=== PATIENT | female | born 1960 ===

== ENCOUNTER 2018-12-25 17:05 | Emergency (ER) | payer MEDICAID ==
[2018-12-25] MEDS ORDERED: KETOROLAC 30 MG/1 ML INJ IV ONE (18:26)
--- NOTE | 2018-12-25 19:32 | Cat Scan Report ---
CT head without contrast INDICATION : Headache following fall. TECHNIQUE: Axial imaging performed from the skull apex through the skull base without the use of con trast. All CT examinations performed at this facility utilize dose modulation, iterative reconstruct ion or weight-based dosing, when appropriate, to reduce radiation dose to as low as reasonably achiev able. COMPARISON: None FINDINGS: No acute intracranial hemorrhage or parenchymal abnormality. Ventricles are normal in si ze and appear symmetric. Soft tissues including the orbits appear normal. No acute osseous abnorm ality. Sinuses and mastoid air cells are clear. IMPRESSION: No acute abnormality. Signer Name: Paddy Roa MD Signed: 12/25/2018 7:28 PM Workstation Name: [id number]
--- NOTE | 2018-12-25 19:46 | Cat Scan Report ---
CT CERVICAL SPINE WITHOUT CONTRAST INDICATION: pain from injury. TECHNIQUE: All CT scans at this location are performed using CT dose reduction for ALARA by means of automated e xposure control. Axial CT images were obtained through the cervical spine. Sagittal and coronal reformatted images we re produced. COMPARISON: None available. FINDINGS: Fracture: None. Subluxation: None. Spinal canal: No significant compromise. Disc spaces: Normal. Facet joints: Normal. Paraspinal soft tissues: No soft tissue swelling. Normal. Additional findings: None. Lung apices: Normal. IMPRESSION: 1. No acute findings. Signer Name: Jovi Pool MD Signed: 12/25/2018 7:41 PM Workstation Name: [id number]
--- NOTE | 2018-12-25 20:15 | XRay Report ---
CHEST 1 VIEW INDICATION / CLINICAL INFORMATION: fall. Chest pain COMPARISON: None available. FINDINGS: SUPPORT DEVICES: None. HEART / MEDIASTINUM: No significant abnormality. LUNGS / PLEURA: Low lung volumes. No pneumothorax or effusion. Signer Name: Paddy Roa MD Signed: 12/25/2018 8:11 PM Workstation Name: [id number]
--- NOTE | 2018-12-25 20:18 | XRay Report ---
Pelvis 2 views INDICATION: Pelvic pain following injury IMPRESSION: The patient is rotated. No displaced fracture or subluxation is identified. Signer Name: Paddy Roa MD Signed: 12/25/2018 8:13 PM Workstation Name: [email or web address]
--- NOTE | 2018-12-25 21:21 | Emergency Department Report ---
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 Patient was noted to be lying on the floor with a small amount of blood from the mouth. Her to follow commands however is difficult to ascertain whether the patient was injured. Patient was placed in c-collar and transported to the hospital. - Related Data Allergies Allergy/AdvReac Type Severity Reaction Status Date / Time No Known Allergies Allergy Verified 12/25/18 18:35 ED Review of Systems ROS: Stated complaint: FELL OFF BED/BLEEDING FROM TEETH Other details as noted in HPI Comment: Unobtainable due to pts medical conditions ED Past Medical Hx - Past Medical History Previous Medical History?: Yes Hx Hypertension: Yes Hx GERD: Yes Additional medical history: huntingtons disease, HTN, hyperlipidemia , Anemia, Mood disorder - Surgical History Past Surgical History?: No - Social History Smoking Status: Unknown if ever smoked Substance Use Type: None ED Physical Exam - General Limitations: No Limitations General appearance: alert, in no apparent distress - Head Head exam: Present: atraumatic, normocephalic - Eye Eye exam: Present: normal appearance - ENT ENT exam: Present: mucous membranes moist - Neck Neck exam: Present: normal inspection, tenderness (patient did grimace when palpating the neck) - Respiratory Respiratory exam: Present: normal lung sounds bilaterally. Absent: respiratory distress, wheezes, rales, rhonchi - Cardiovascular Cardiovascular Exam: Present: regular rate, normal rhythm, normal heart sounds. Absent: systolic murmur, diastolic murmur, rubs, gallop - GI/Abdominal GI/Abdominal exam: Present: soft, normal bowel sounds. Absent: distended, tenderness, guarding, rebound - Extremities Exam Extremities exam: Present: normal inspection - Back Exam Back exam: Present: normal inspection - Neurological Exam Neurological exam: Present: alert, oriented X3 - Psychiatric Psychiatric exam: Present: normal affect, normal mood - Skin Skin exam: Present: warm, dry, intact, normal color. Absent: rash ED Course Vital Signs 12/25/18 12/25/18 12/25/18 18:14 18:39 19:09 Temperature 97.5 F L Pulse Rate 73 Respiratory 12 20 16 Rate Blood Pressure 126/78 [Right] O2 Sat by Pulse 100 Oximetry ED Medical Decision Making - Radiology Data CT of the head and C-spine were performed to rule out intracranial bleed and fracture. CTs were within normal limits. X-ray of the chest was performed and was negative as well. Patient pelvis showed no acute fracture. Critical care attestation.: If time is entered above; I have spent that time in minutes in the direct care of this critically ill patient, excluding procedure time. ED Disposition Clinical Impression: Fall with injury Qualifiers: Encounter type: initial encounter Qualified Code(s): W19.XXXA - Unspecified fall, initial encounter Cervical strain Qualifiers: Encounter type: initial encounter Qualified Code(s): S16.1XXA - Strain of muscle, fascia and tendon at neck level, initial encounter Disposition: DC-01 TO HOME OR SELFCARE Is pt being admited?: No Does the pt Need Aspirin: No Condition: Stable Instructions: Fall Prevention for Older Adults (ED) Time of Disposition: 21:21
[2018-12-25 23:43] VITALS: BP 127/80
== END 2018-12-25 23:59 | disposition home or self-care (01) ==
LOC: ED 17:05
DX: S16.1XXA Strain of muscle, fascia and tendon at neck level, initial encounter (principal); I10 Essential (primary) hypertension; K21.9 Gastro-esophageal reflux disease without esophagitis; E78.5 Hyperlipidemia, unspecified; Z86.2 Personal history of diseases of the blood and blood-forming organs and certain disorders involving the immune mechanism; W06.XXXA Fall from bed, initial encounter; Y93.89 Activity, other specified; Y92.128 Other place in nursing home as the place of occurrence of the external cause; Y99.8 Other external cause status
CPT/HCPCS: 70450; 71045; 72125; 72170; 96374; 99284; J1885

== ENCOUNTER 2019-02-27 14:56 | Inpatient (IN) | payer MEDICAID ==
--- NOTE | 2019-02-27 15:07 | Emergency Department Report ---
ED Neuro Deficit HPI - General Chief Complaint: Neuro Symptoms/Deficit Stated Complaint: POSS CVA Time Seen by Provider: 02/27/19 15:01 Source: EMS Mode of arrival: Stretcher Limitations: Altered Mental Status, Physical Limitation - History of Present Illness Initial Comments: Patient is 58 years old female, jail patient, history of [place] d isease, hypertension, hyperlipidemia and depression. Patient is wheelchair ridden, not verbally, communicating but patient is able to feed herself. Patient brought to the emergency room via EMS from her jail after staff noted weakness to the left upper and lower extremity. Stroke protocol immediately initiated. Patient moved to CT. Stroke telemetry neurology immediately consulted. -: Sudden, This afternoon Location: left arm, left leg Presenting Symptoms: Present: Weak/Paralyzed One Side Place: other ([facility]) Context: sudden onset - Related Data Allergies/Adverse Reactions: Allergies Allergy/AdvReac Type Severity Reaction Status Date / Time No Known Allergies Allergy Verified 12/25/18 18:35 ED Review of Systems ROS: Stated complaint: POSS CVA Other details as noted in HPI Comment: Unobtainable due to pts medical conditions ED Past Medical Hx - Past Medical History Previous Medical History?: Yes Hx Hypertension: Yes Hx GERD: Yes Additional medical history: huntingtons disease, HTN, hyperlipidemia , Anemia, Mood disorder - Surgical History Past Surgical History?: No - Social History Smoking Status: Unknown if ever smoked Substance Use Type: None ED Neuro Physical Exam - General Limitations: Altered Mental Status, Physical Limitation General appearance: alert, in no apparent distress Suspected Stroke: Yes - Head Head exam: Present: atraumatic, normocephalic, normal inspection - ENT ENT exam: Present: normal exam, normal orophraynx, mucous membranes moist - Respiratory Respiratory exam: Present: normal lung sounds bilaterally - Cardiovascular Cardiovascular Exam: Present: regular rate, normal rhythm, normal heart sounds - GI/Abdominal GI/Abdominal exam: Present: soft, normal bowel sounds. Absent: distended, tenderness, guarding, rebound, rigid - Neurological Exam Neurological exam: Present: alert - NIHSS Assessment Interval: Baseline 1a. Level of Consciousness: arousable/minor stimuli 1b. LOC Questions: answers no questions correctly 1c. LOC Commands: performs no tasks correctly 2. Best Gaze: normal 3. Visual: no visual loss 4. Facial Palsy: normal symmetrical movement 5b. Motor Arm Right: no drift 5a. Motor Arm Left: drift 6a. Motor Leg Left: no movement 6b. Motor Leg Right: no movement 7. Limb Ataxia: absent 8. Sensory: normal 9. Best Language: mute/global aphasia 10. Dysarthria: intubated or other barrier 11. Extinction/Inattention: no abnormality Total Score: 17 Stroke Severity: Moderate to Severe Stroke - Skin Skin exam: Present: warm, intact, normal color ED Course Vital Signs 02/27/19 02/27/19 15:27 15:46 Temperature 98.6 F Pulse Rate 73 Respiratory 14 18 Rate Blood Pressure 125/63 O2 Sat by Pulse 98 Oximetry - Lab Data Result diagrams: 02/27/19 15:20 02/27/19 15:20 Lab Results 02/27/19 02/27/19 02/27/19 Range/Units 15:20 15:20 15:20 WBC 9.5 (4.5-11.0) K/mm3 RBC 4.02 (3.65-5.03) M/mm3 Hgb 12.0 (10.1-14.3) gm/dl Hct 36.3 (30.3-42.9) % MCV 90 (79-97) fl MCH 30 (28-32) pg MCHC 33 (30-34) % RDW 13.2 (13.2-15.2) % Plt Count 218 (140-440) K/mm3 Lymph % (Auto) 31.3 (13.4-35.0) % Mcleod % (Auto) 9.2 H (0.0-7.3) % Eos % (Auto) 1.6 (0.0-4.3) % Baso % (Auto) 0.5 (0.0-1.8) % Lymph # 3.0 (1.2-5.4) K/mm3 Mcleod # 0.9 H (0.0-0.8) K/mm3 Eos # 0.2 (0.0-0.4) K/mm3 Baso # 0.0 (0.0-0.1) K/mm3 Seg Neutrophils % 57.4 (40.0-70.0) % Seg Neutrophils # 5.5 (1.8-7.7) K/mm3 PT 13.1 (12.2-14.9) Sec. INR 0.98 (0.87-1.13) APTT 31.1 (24.2-36.6) Sec. Thrombin Time (15.1-19.6) Sec. Sodium 142 (137-145) mmol/L Potassium 4.5 (3.6-5.0) mmol/L Chloride 105.3 (98-107) mmol/L Carbon Dioxide 23 (22-30) mmol/L Anion Gap 18 mmol/L BUN 15 (7-17) mg/dL Creatinine 0.8 (0.7-1.2) mg/dL Estimated GFR > 60 ml/min BUN/Creatinine Ratio 19 % Glucose 96 (65-100) mg/dL Calcium 9.3 (8.4-10.2) mg/dL Troponin T < 0.010 (0.00-0.029) ng/mL 02/27/19 Range/Units 15:20 WBC (4.5-11.0) K/mm3 RBC (3.65-5.03) M/mm3 Hgb (10.1-14.3) gm/dl Hct (30.3-42.9) % MCV (79-97) fl MCH (28-32) pg MCHC (30-34) % RDW (13.2-15.2) % Plt Count (140-440) K/mm3 Lymph % (Auto) (13.4-35.0) % Mcleod % (Auto) (0.0-7.3) % Eos % (Auto) (0.0-4.3) % Baso % (Auto) (0.0-1.8) % Lymph # (1.2-5.4) K/mm3 Mcleod # (0.0-0.8) K/mm3 Eos # (0.0-0.4) K/mm3 Baso # (0.0-0.1) K/mm3 Seg Neutrophils % (40.0-70.0) % Seg Neutrophils # (1.8-7.7) K/mm3 PT (12.2-14.9) Sec. INR (0.87-1.13) APTT (24.2-36.6) Sec. Thrombin Time 14.7 L (15.1-19.6) Sec. Sodium (137-145) mmol/L Potassium (3.6-5.0) mmol/L Chloride (98-107) mmol/L Carbon Dioxide (22-30) mmol/L Anion Gap mmol/L BUN (7-17) mg/dL Creatinine (0.7-1.2) mg/dL Estimated GFR ml/min BUN/Creatinine Ratio % Glucose (65-100) mg/dL Calcium (8.4-10.2) mg/dL Troponin T (0.00-0.029) ng/mL - EKG Data -: EKG Interpreted by Me EKG shows normal: sinus rhythm Rate: normal Interpretation: no acute changes - Radiology Data Radiology results: report reviewed - Medical Decision Making Patient is 58 years old female, jail patient, history of [place] disease, hypertension, hyperlipidemia and depression. Patient is wheelchair ridden, not verbally, communicating but patient is able to feed herself. Patient brought to the emergency room via EMS from her jail after staff noted weakness to the left upper and lower extremity. Stroke protocol immediately initiated. Patient moved to CT. Stroke telemetry neurology immediately consulted. CT brain is negative for acute finding however patient is not a TPA candidate due to unknown time of onset and patient is back to her baseline according to EMS who noted the patient. Neurologists advised to admit to the hospital for stroke workup. Critical Care Time: Yes Critical care time in (mins) excluding proc time.: 30 Critical care attestation.: If time is entered above; I have spent that time in minutes in the direct care of this critically ill patient, excluding procedure time. ED Disposition Clinical Impression: TIA (transient ischemic attack), Left-sided weakness Disposition: OP ADMIT IP TO THIS HOSP Is pt being admited?: Yes Condition: Stable
[2019-02-27 15:27] LABS: Basophils % (Auto) 0.5 % (0.0-1.8); Eosinophils # (Auto) 0.2 K/mm3 (0.0-0.4); Eosinophils % (Auto) 1.6 % (0.0-4.3); Hematocrit 36.3 % (30.3-42.9); Lymphocytes % (Auto) 31.3 % (13.4-35.0); Mean Corpuscular HGB Conc 33 % (30-34); Mean Corpuscular Volume 90 fl (79-97); Monocytes # (Auto) 0.9 K/mm3 (0.0-0.8); Monocytes % (Auto) 9.2 % (0.0-7.3); Platelet Count 218 K/mm3 (140-440); Red Blood Count 4.02 M/mm3 (3.65-5.03); Red Cell Distribution Width 13.2 % (13.2-15.2)
--- NOTE | 2019-02-27 15:35 | Cat Scan Report ---
CT HEAD WITHOUT CONTRAST INDICATION / CLINICAL INFORMATION: neuro deficits <6hrs or sx present upon awakening. New onset left-sided weakness. History of [place] on's disease. TECHNIQUE: All CT scans at this location are performed using CT dose reduction for ALARA by means of automated e xposure control. COMPARISON: None available. FINDINGS: HEMORRHAGE: No evidence of intracranial hemorrhage or extra-axial fluid collection. EXTRA-AXIAL SPACES: Cortical sulci and sylvian fissures are enlarged reflecting a degree of parenchym al volume loss which is within normal limits for the patient's age. Basilar cisterns have an unremark able appearance. VENTRICULAR SYSTEM: The third and lateral ventricles are enlarged reflecting the presence of profound parenchymal volume loss much greater than expected for the patient's age of 58 years. The frontal ho rns of the lateral ventricles are not dilated. There is atrophy of the head of the caudate nuclei shirin aterally. These findings are consistent with the patient's clinical history of Monroe's disease. CEREBRAL PARENCHYMA: Periventricular and deep white matter lucency is observed. This is probably seco ndary to microvascular ischemic change. There is no indication of recent infarction. No areas of ence phalomalacia are identified. MIDLINE SHIFT OR HERNIATION: There is no mass effect. CEREBELLUM / BRAINSTEM: Profound cerebellar atrophy is demonstrated with global dilatation of the cer ebellar and vermian sulci fourth ventricle is enlarged which is a manifestation of atrophy. No focal lesions are seen to involve the brainstem. INTRACRANIAL VESSELS: No abnormalities identified on noncontrast head CT. ORBITS: visualized portions of the orbits have an unremarkable appearance. SOFT TISSUES of HEAD: No significant abnormality. CALVARIUM: Evaluation of bone windows reveals no abnormalities. PARANASAL SINUSES / MASTOID AIR CELLS: Paranasal sinuses are free from inflammatory mucosal disease. Mastoid air cells are normally pneumatized. IMPRESSION: 1. Profound parenchymal volume loss much greater than expected for the patient's age of 58 years. 2. 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 3. No acute intracranial abnormality. No significant interval change. Code stroke: I called a report of this study to Dr. Isabel of the [facility] emergency depa rtment at about 1424 Central standard time. Signer Name: Star Madden MD Signed: 02/27/2019 3:30 PM Workstation Name: [id number]
[2019-02-27 15:38] LABS: INR 0.98 (0.87-1.13); Partial Thromboplastin Time 31.1 Sec. (24.2-36.6)
[2019-02-27 15:46] LABS: BUN/Creatinine Ratio 19; Blood Urea Nitrogen 15 mg/dL (7-17); Calcium 9.3 mg/dL (8.4-10.2); Hemolysis Index 14
--- NOTE | 2019-02-27 16:24 | History and Physical Report ---
History of Present Illness Chief complaint: She is weak History of present illness: 58-year-old female assisted facility resident at [facility] with HTN, GERD, anemia, HLD, [place]'s disease, mood disorder and depression presents the ED for evaluation. Patient is nonverbal, nonambulatory and wh eelchair-bound. Patient is unable to communicate or make needs known. Patient is unable to provide history. Patient history taken from assisted facility staff. As per staff the patient was found to have subjective weakness on her left side. EMS was notified and upon arrival the patient was found to be in distress and transported to [facility]. A code stroke was called. Patient seen and evaluated in the emergency department. Lab and imaging studies reviewed. 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 Patient does not have symptoms at time of my evaluation consistent with stroke. Patient has symmetric weakness in bilateral upper and lower extremities and is moving bilateral upper and lower extremities. Patient placed in observation status and admitted to medical floor. No reported fever, chills, chest pain, palpitations, difficulty breathing, falls, trauma, skin rash, or recent ill contacts while at [facility]. No prior admission for 2 for review. All medication listed at time of admission have been reconciled. Past History Past Medical History: anemia (See HPI), GERD, hypertension, other (See HPI) Past Surgical History: No surgical history, Other (Reviewed) Social history: single. denies: smoking, alcohol abuse, prescription drug abuse Family history: hypertension Medications and Allergies Allergies Allergy/AdvReac Type Severity Reaction Status Date / Time No Known Allergies Allergy Verified 12/25/18 18:35 Review of Systems ROS unobtainable: due to mental status Exam - Constitutional Vitals: Temp Pulse Resp BP Pulse Ox 98.6 F 73 18 125/63 98 02/27/19 15:27 02/27/19 15:27 02/27/19 15:46 02/27/19 15:27 02/27/19 15:27 General appearance: Present: mild distress - EENT Eyes: Present: PERRL ENT: hearing intact, clear oral mucosa - Neck Neck: Present: supple, normal ROM - Respiratory Respiratory effort: normal Respiratory: bilateral: CTA - Cardiovascular Heart Sounds: Present: S1 & S2. Absent: rub, click - Extremities Extremities: pulses symmetrical, No edema Peripheral Pulses: within normal limits - Abdominal General gastrointestinal: Present: soft, non-tender, non-distended, normal bowel sounds Female genitourinary: Present: normal - Integumentary Integumentary: Present: clear, dry - Musculoskeletal Musculoskeletal: generalized weakness - Psychiatric Psychiatric: no appropriate mood/affect, no intact judgment & insight, no memory intact - Neurologic Neurologic: no focal deficits, moves all extremities, no gait normal Results - Labs CBC & Chem 7: 02/27/19 15:20 02/27/19 15:20 Labs: Abnormal lab results 02/27/19 02/27/19 Range/Units 15:20 15:20 [place] % (Auto) 9.2 H (0.0-7.3) % [place] # 0.9 H (0.0-0.8) K/mm3 Thrombin Time 14.7 L (15.1-19.6) Sec. Assessment and Plan - Patient Problems (1) [place]'s disease Status: Acute Plan to address problem: Supportive care, neurochecks, aspiration precautions, outpatient neurology follow-up. (2) Debility Status: Acute Plan to address problem: Supportive care, pain control, physical therapy assessment (3) Hypertension Status: Acute Qualifiers: Hypertension type: essential hypertension Qualified Code(s): I10 - Essential (primary) hypertension Plan to address problem: monitor BP every shift, continue medical management. (4) GERD (gastroesophageal reflux disease) Status: Acute Qualifiers: Esophagitis presence: without esophagitis Qualified Code(s): K21.9 - Gastr o-esophageal reflux disease without esophagitis Plan to address problem: PPI therapy, supportive care (5) DVT prophylaxis Status: Acute Plan to address problem: SCD to bilateral lower extremities while in bed, prophylactic Lovenox.
--- NOTE | 2019-02-27 21:59 | Consultation ---
History of Present Illness - Reason for Consult Consult date: 02/27/19 stroke evaluation - History of Present Illness [facility] Tele[facility]urology Consult Services Date of Service: 02/27/2019 15:19:57 Comments: not iv alteplase candidate with unclear onset of sxs low clinical suspicion for Large vessel occlusive disease by assessment. Metrics: Last Known Well: Unknown [facility] Notification Time: 02/27/2019 15:19:17 Arrival Time: 02/27/2019 14:56:00 Stamp Time: 02/27/2019 15:19:57 Time First Login Attempt: 02/27/2019 15:28:03 Video Start Time: 02/27/2019 15:28:03 NIHSS Start Assessment Time: 02/27/2019 15:30:56 Patient is not a candidate for tPA. Patient was not deemed candidate for tPA thrombolytics because of Last Well Known Above 4.5 Hours. Video End Time: 02/27/2019 15:34:33 CT head showed no acute hemorrhage or acute core infarct. Advanced imaging was not obtained as the presentation was not suggestive of Large Vessel Occlusive Disease. ER Physician notified of the decision on thrombolytics management on 02/27/2019 15:36:03 Our recommendations are outlined below. Recommendations: Activate Stroke Protocol Admission/Order Set Stroke/Telemetry Floor Neuro Checks Bedside Swallow Eval DVT Prophylaxis IV Fluids, Normal Saline Head of Bed Below 30 Degrees Euglycemia and Avoid Hyperthermia (PRN Acetaminophen) Antiplatelet Therapy Recommended Recommended Scan: MRI Head with and Without Contrast Lipid Panel to Be Obtained, if Not Done in the Last Three Months Therapies: Physical Therapy, Occupational Therapy, Speech Therapy Assessment When Applicable Dysphaghia Screen: Swallow Evaluation, Bedside NPO Until Swallow Evaluation DVT prophylaxis: Choice of Primary Team Disposition: If needed consider follow up with Teleneurology Sign Out: Discussed with Emergency Department Provider History of Present Illness: Patient is a 58 year old Female. Patient was brought by EMS. Patient presents from [facility] for evaluation for change. She is non verbal at baseline, has Anabela's disease and hypertension. The caregiver states no change in baseline but provider that did rounds felt there was. Onset of sxs unclear and per d/w ED staff she is moving her left side. CT head showed no acute hemorrhage or acute core infarct. Examination: 1A: Level of Consciousness - Alert; keenly responsive + 0 1B: Ask Month and Age - Could Not Answer Either Question Correctly + 2 (baseline) 1C: Blink Eyes & Squeeze Hands - Performs 1 Task + 1 2: Test Horizontal Extraocular Movements - Normal + 0 3: Test Visual Brooks - No Visual Loss + 0 4: Test Facial Palsy (Use Grimace if Obtunded) - Normal symmetry + 0 5A: Test Left Arm Motor Drift - Drift, but doesn't hit bed + 1 5B: Test Right Arm Motor Drift - Drift, but doesn't hit bed + 1 6A: Test Left Leg Motor Drift - No Effort Against Burdine +2 6B: Test Right Leg Motor Drift - Some Effort Against Burdine + 3 7: Test Limb Ataxia (FNF/Heel-Butt) - No Ataxia + 0 8: Test Sensation - Normal; No sensory loss + 0 9: Test Language/Aphasia - Mute/Global Aphasia: No Usable Speech/Auditory Comprehension + 3 (baseline) 10: Test Dysarthria - Normal + 0 11: Test Extinction/Inattention - No abnormality + 0 NIHSS Score: 13 Patient was informed the Neurology Consult would happen via TeleHealth consult by way of interactive audio and video telecommunications and consented to receiving care in this manner. Due to the immediate potential for life-threatening deterioration due to under lying acute neurologic illness, I spent 35 minutes providing critical care. This time includes time for face to face visit via telemedicine, review of medical records, imaging studies and discussion of findings with providers, the patient and/or family. Dr Jeffrey Harris [facility] Case [id number] Past History Past Medical History: anemia (See HPI), GERD, hypertension, other (See HPI) Past Surgical History: No surgical history, Other (Reviewed) Social history: single. denies: smoking, alcohol abuse, prescription drug abuse Family history: hypertension Medications and Allergies Allergies Allergy/AdvReac Type Severity Reaction Status Date / Time No Known Allergies Allergy Verified 12/25/18 18:35 Home Medications Medication Instructions Recorded Confirmed Last Taken Type Amlodipine Besylate [Norvasc] 2.5 mg PO DAILY 02/27/19 02/27/19 Unknown History Docusate Sodium [Colace] 100 mg PO DAILY 02/27/19 02/27/19 Unknown History Ferrous Sulfate [Iron 325 MG] 325 mg PO DAILY 02/27/19 02/27/19 Unknown History Ketoconazole [Ketoconazole shampoo] 120 ml TP QWEEK 02/27/19 02/27/19 Unknown History Pravastatin [Pravachol] 10 mg PO QHS 02/27/19 02/27/19 Unknown History QUEtiapine [SEROquel] 100 mg PO QHS 02/27/19 02/27/19 Unknown History clonazePAM 0.5 mg PO DAILY 02/27/19 02/27/19 Unknown History Active Meds: Active Medications Enoxaparin Sodium (Enoxaparin) 40 mg SUB-Q QDAY@2200 [facility] Exam - Constitutional Vitals: Temp Pulse Resp BP Pulse Ox 98.6 F 72 17 123/83 98 02/27/19 21:34 02/27/19 21:34 02/27/19 21:34 02/27/19 20:00 02/27/19 21:34 Results - Labs CBC & Chem 7: 02/27/19 15:20 02/27/19 15:20 Labs: Abnormal lab results 02/27/19 02/27/19 Range/Units 15:20 15:20 [place] % (Auto) 9.2 H (0.0-7.3) % [place] # 0.9 H (0.0-0.8) K/mm3 Thrombin Time 14.7 L (15.1-19.6) Sec.
[2019-02-27] MEDS: ENOXAPARIN 40 MG/0.4 ML INJ SUB-Q SCH (22:13)
[2019-02-28] MEDS ORDERED: D5W/0.45% NACL 1,000 ML IV SCH (12:00)
[2019-02-28] MEDS: DOCUSATE SODIUM 100 MG CAP PO SCH (12:00)
[2019-02-28] MEDS: ASPIRIN 325 MG TAB PO SCH (12:00)
[2019-02-28] MEDS: clonazePAM 0.5 MG TAB PO SCH (12:00)
[2019-02-28] MEDS: FERROUS SULFATE 325 MG TAB PO SCH (12:00)
--- NOTE | 2019-02-28 12:45 | Vascular Lab Report ---
"DUPLEX DOPPLER ULTRASOUND CAROTID, BILATERAL INDICATION: stroke. COMPARISON: None available. FINDINGS: RIGHT CAROTID: No significant atherosclerotic plaque. CCA velocity: 95 cm/sec. ICA peak systolic velocity: 91 cm/sec. ICA/CCA PSV Ratio: Less than 1.. Right Vertebral Artery: Antegrade flow. LEFT CAROTID: No significant atherosclerotic plaque. CCA velocity: 128 cm/sec. ICA peak systolic velocity: 87 cm/sec. ICA/CCA PSV Ratio: Less than 1.. Left Vertebral Artery: Antegrade flow. IMPRESSION: 1. Right Internal Carotid Artery: Less than 50% diameter stenosis. 2. Left Internal Carotid Artery: Less than 50% diameter stenosis. Velocity criteria are extrapolated from diameter data as defined by the Society of Radiologists in Ul trasound Consensus Conference, Radiology 2003; 229;340-346. Degree of || ICA PSV || Plaque || ICA/CCA Stenosis (%) || (cm/sec) || estimate (%) || PSV Ratio - Normal...............<125..............None.................<2.0 - <50....................<125..............<50....................<2.0 - 50-69................125-230.........>50....................2.0-4.0 - >70 but <100....>230..............>50....................>4.0 - Near...................High, low, .....visible................variable occlusion or none - Total...................None.............visible;................N/A occlusion no lumen Signer Name: Se Flower MD Signed: 02/28/2019 12:41 PM Workstation Name: [id number]"
--- NOTE | 2019-02-28 16:07 | Consultation ---
History of Present Illness Consult date: 02/28/19 Reason for Consult: Left sided weakness Chief complaint: Left sided weakness History of present illness: Patient is a 58-year-old woman with a history of Anabela's disease, hypertension, GERD, depression. Patient is reportedly intermittently nonverbal and nonambulatory at baseline, and has cognitive impairment as well. The patient is a resident of a nursing facility. Yesterday, the patient was felt to have left-sided weakness. The reports of this or conflicted, as the patient's caregiver states that there is no change since baseline, however the health care provider who was running on the patient yesterday felt that they saw a change in motor strength on the left side. Patient was then brought to [facility] for further evaluation. On examination at time of admission, patient was felt to be symmetrically moving all extremities, and was not found to have any localized weakness. Past History Past Medical History: anemia (See HPI), GERD, hypertension, other (Henderson's disease) Past Surgical History: No surgical history, Other (Reviewed) Social history: single, Lives alone (nursing facility). denies: smoking, alcohol abuse, prescription drug abuse Family history: hypertension Medications and Allergies Allergies Allergy/AdvReac Type Severity Reaction Status Date / Time No Known Allergies Allergy Verified 12/25/18 18:35 Home Medications Medication Instructions Recorded Confirmed Last Taken Type Amlodipine Besylate [Norvasc] 2.5 mg PO DAILY 02/27/19 02/27/19 Unknown History Docusate Sodium [Colace] 100 mg PO DAILY 02/27/19 02/27/19 Unknown History Ferrous Sulfate [Iron 325 MG] 325 mg PO DAILY 02/27/19 02/27/19 Unknown History Ketoconazole [Ketoconazole shampoo] 120 ml TP QWEEK 02/27/19 02/27/19 Unknown History Pravastatin [Pravachol] 10 mg PO QHS 02/27/19 02/27/19 Unknown History QUEtiapine [SEROquel] 100 mg PO QHS 02/27/19 02/27/19 Unknown History clonazePAM 0.5 mg PO DAILY 02/27/19 02/27/19 Unknown History Active Meds: Active Medications Aspirin (Aspirin) 325 mg PO QDAY [facility] Last Admin: 02/28/19 12:00 Dose: Not Given Documented by: Atorvastatin Calcium (Lipitor) 40 mg PO QHS [facility] Clonazepam (Klonopin) 0.5 mg PO DAILY [facility] Last Admin: 02/28/19 12:00 Dose: Not Given Documented by: Docusate Sodium (Colace) 100 mg PO DAILY [facility] Last Admin: 02/28/19 12:00 Dose: Not Given Documented by: Enoxaparin Sodium (Enoxaparin) 40 mg SUB-Q QDAY@2200 [facility] Last Admin: 02/27/19 22:13 Dose: 40 mg Documented by: Ferrous Sulfate (Feosol) 325 mg PO DAILY [facility] Last Admin: 02/28/19 12:00 Dose: Not Given Documented by: Dextrose/Sodium Chloride (D5/0.45ns) 1,000 mls @ 42 mls/hr IV DIRECT [facility] Last Admin: 02/28/19 12:13 Dose: 42 mls/hr Documented by: Quetiapine Fumarate (Seroquel) 100 mg PO QHS [facility] Sodium Chloride (Sodium Chloride Flush Syringe 10 Ml) 10 ml IV PRN PRN PRN Reason: LINE FLUSH Review of Systems ROS unobtainable: due to mental status (patient is nonverbal at baseline) Physical Examination - Vital Signs Vital Signs: Vital Signs Temp Pulse Resp BP Pulse Ox 98.6 F 73 14 125/63 98 02/27/19 15:27 02/27/19 15:27 02/27/19 15:27 02/27/19 15:27 02/27/19 15:27 - Physical Exam Narrative exam: Patient is alert, awake, oriented to self only, follows one-step commands. Noted to have mild dysarthria which is baseline, no aphasia noted. Patient able to name objects. PERRL, EOMI, VFF, no facial weakness noted, tongue midline, b/l intact to LT. 4/5 strength in UE, 4/5 in LE. B/l intact to LT. B/l intact to FTN and HTS. 2+ reflexes throughout. Noted to have chorea movement during exam. - Constitutional General appearance: comfortable - EENT EENT: Present: ATNC, PERRL, mucous membranes moist - Respiratory Respiratory: Present: lungs clear, normal breath sounds - Cardiovascular Cardiovascular: Present: regular rate, normal S1, normal S2 Extremities: Present: no clubbing, cyanosis, no inflammation - Gastrointestinal Gastrointestinal: Present: normoactive bowel sounds, soft, non-tender - Integumentary Integumentary: Present: normal - Level of Consciousness 1a. Level of Consciousness: alert/keenly responsive - LOC Questions 1b. LOC Questions: answers 1 question correctly - LOC Command 1c. LOC Commands: performs tasks correctly - Best Gaze 2. Best Gaze: normal - Visual 3. Visual: no visual loss - Facial Palsy 4. Facial Palsy: normal symmetrical movement - Motor Arm 5a. Motor Arm Left: no drift 5b. Motor Arm Right: no drift - Motor Leg 6a. Motor Leg Left: no drift 6b. Motor Leg Right: no drift - Limb Ataxia 7. Limb Ataxia: absent - Sensory 8. Sensory: normal - Best Language 9. Best Language: no aphasia - Dysarthria 10. Dysarthria: mild/moderate dysarthria - Extinction and Inattention 11. Extinction/Inattention: no abnormality - Scoring Total Score: 2 Stroke Severity: Minor Stroke Results - Laboratory Findings CBC and BMP: 02/27/19 15:20 02/27/19 15:20 Abnormal Lab Findings: Abnormal Labs 02/27/19 02/27/19 15:20 15:20 [place] % (Auto) 9.2 H [place] # 0.9 H Thrombin Time 14.7 L Assessment and Plan Patient is a 58-year-old woman with a history of Henderson's disease, hypertension, GERD, depression, who p/w left sided weakness. According to the patient's clinical findings, it is felt that the patient may have had a TIA. Alternatively, symptoms may be due to patient's underlying diagnosis of Henderson's disease. Plan: 1. Possible TIA: - Left sided weakness was reportedly noted by healthcare worker at nursing facility. No current weakness noted on exam at this time - Discussed patient's baseline, and patient is currently at baseline based on mental status and neurologic exam - Check MRI - Check MRA head - CUS: no significant stenosis - Cont. ASA 81mg daily - Cont. statin - Telemetry monitoring while in house - PT/OT/ST - DVT Ppx: Recommend lovenox 2. Hypertension: - Recommend BP goal of normotension as patient is back at baseline, and currently has no left sided weakness. - Will continue to monitor patient. Thank you for allowing me to take part in the care this patient. Jerzy Baker MD Neurology
[2019-02-28] MEDS ORDERED: ONDANSETRON 4 MG/2 ML INJ IV PRN (16:44)
--- NOTE | 2019-02-28 16:47 | Progress Note ---
Assessment and Plan Assessment and plan: 58-year-old woman with a history of [place]'s disease, dementia. She was brought from senior care for decreased responsiveness and they stated that she was not moving her right side. acute CVA? unclear if she did have a cva, she is moving both sides of her body, but she seems to hold her right upper extremity, but she has ability to move it, right side does appear to be weaker than left side. Tele- neurology input appreciated, neurology consulted, Allow permissive hypertension, has received aspirin, stroke education, observe for arrhythmia on telemetry, -neurology consult --aspirin and high dose statin, check Lipid panel MRI brain, MRA head, carotid Dopplers, echo -- passed bedside swallow eval, on [facility] soft diet Anabela's disease/dementia; supportive care Dysphasia Dysphasia was related by senior care, but patient is eating 100% of her tray. It is possible that she does not like the food there. I giving her a pured diet at a senior care, but we gave her mechanical soft diet which he consumed 100%. Speech therapy evaluation. Nausea vomiting Antiemetics, GI consult DVT prophylaxis with Lovenox History Interval history: No fevers She has had nausea and vomiting no seizure-like activity No diarrhea No agitation No obvious discomfort Hospitalist Physical - Physical exam Narrative exam: General.: Appears well, no distress, nontoxic HEENT: Moist mucous membranes, extraocular muscles intact, no lymphadenopathy Neck: supple Cardiac: S1-S2 heard Lungs: clear to auscultation bilaterally Abdomen: soft , nontender, nondistended, bowel sounds positive Extremities: no edema clubbing or cyanosis Skin: no rash or lesions Neurologic: Has constant movements consistent with movement disorder. Patient is holding right upper extremity, but she has full movement of all her extremities. Right side appears weaker than left, but she is not able to coop erate with exam due to [place]'s dementia Psych: calm, and cooperative - Constitutional Vitals: Temp Pulse Resp BP Pulse Ox 97.5 F L 82 20 125/81 97 02/28/19 03:20 02/28/19 03:20 02/28/19 03:20 02/28/19 03:20 02/28/19 03:20 General appearance: Present: mild distress Results - Labs CBC & Chem 7: 02/27/19 15:20 02/27/19 15:20 Labs: Laboratory Last Values WBC 9.5 K/mm3 (4.5-11.0) 02/27/19 15:20 RBC 4.02 M/mm3 (3.65-5.03) 02/27/19 15:20 Hgb 12.0 gm/dl (10.1-14.3) 02/27/19 15:20 Hct 36.3 % (30.3-42.9) 02/27/19 15:20 MCV 90 fl (79-97) 02/27/19 15:20 MCH 30 pg (28-32) 02/27/19 15:20 MCHC 33 % (30-34) 02/27/19 15:20 RDW 13.2 % (13.2-15.2) 02/27/19 15:20 Plt Count 218 K/mm3 (140-440) 02/27/19 15:20 Lymph % (Auto) 31.3 % (13.4-35.0) 02/27/19 15:20 [place] % (Auto) 9.2 % (0.0-7.3) H 02/27/19 15:20 Eos % (Auto) 1.6 % (0.0-4.3) 02/27/19 15:20 Baso % (Auto) 0.5 % (0.0-1.8) 02/27/19 15:20 Lymph # 3.0 K/mm3 (1.2-5.4) 02/27/19 15:20 [place] # 0.9 K/mm3 (0.0-0.8) H 02/27/19 15:20 Eos # 0.2 K/mm3 (0.0-0.4) 02/27/19 15:20 Baso # 0.0 K/mm3 (0.0-0.1) 02/27/19 15:20 Seg Neutrophils % 57.4 % (40.0-70.0) 02/27/19 15:20 Seg Neutrophils # 5.5 K/mm3 (1.8-7.7) 02/27/19 15:20 PT 13.1 Sec. (12.2-14.9) 02/27/19 15:20 INR 0.98 (0.87-1.13) 02/27/19 15:20 APTT 31.1 Sec. (24.2-36.6) 02/27/19 15:20 Thrombin Time 14.7 Sec. (15.1-19.6) L 02/27/19 15:20 Sodium 142 mmol/L (137-145) 02/27/19 15:20 Potassium 4.5 mmol/L (3.6-5.0) 02/27/19 15:20 Chloride 105.3 mmol/L (98-107) 02/27/19 15:20 Carbon Dioxide 23 mmol/L (22-30) 02/27/19 15:20 Anion Gap 18 mmol/L 02/27/19 15:20 BUN 15 mg/dL (7-17) 02/27/19 15:20 Creatinine 0.8 mg/dL (0.7-1.2) 02/27/19 15:20 Estimated GFR > 60 ml/min 02/27/19 15:20 BUN/Creatinine Ratio 19 % 02/27/19 15:20 Glucose 96 mg/dL (65-100) 02/27/19 15:20 POC Glucose 108 (70-105) H 02/28/19 16:36 Calcium 9.3 mg/dL (8.4-10.2) 02/27/19 15:20 Troponin T < 0.010 ng/mL (0.00-0.029) 02/27/19 15:20 Active Medications - Current Medications Current Medications: Generic Name Dose Route Start Last Admin Trade Name Freq PRN Reason Stop Dose Admin Aspirin 325 mg 02/28/19 12:00 02/28/19 12:00 Aspirin PO Not Given QDAY [facility] Atorvastatin Calcium 40 mg 02/28/19 22:00 Lipitor PO QHS [facility] Clonazepam 0.5 mg 02/28/19 12:00 02/28/19 12:00 Klonopin PO Not Given DAILY [facility] Docusate Sodium 100 mg 02/28/19 12:00 02/28/19 12:00 Colace PO Not Given DAILY [facility] Enoxaparin Sodium 40 mg 02/27/19 22:00 02/27/19 22:13 Enoxaparin SUB-Q 40 mg QDAY@2200 [facility] Administration Ferrous Sulfate 325 mg 02/28/19 12:00 02/28/19 12:00 Feosol PO Not Given DAILY [facility] Dextrose/Sodium Chloride 1,000 mls @ 42 mls/hr 02/28/19 12:00 02/28/19 12:13 D5/0.45ns IV 42 mls/hr DIRECT [facility] Administration Ondansetron HCl 4 mg 02/28/19 16:44 Zofran IV Q4H PRN Nausea And Vomiting Quetiapine Fumarate 100 mg 02/28/19 22:00 Seroquel PO QHS [facility] Sodium Chloride 10 ml 02/28/19 10:36 Sodium Chloride Flush Syringe 10 Ml IV PRN PRN LINE FLUSH
[2019-02-28] MEDS ORDERED: QUEtiapine 100 MG TAB PO SCH (22:00)
[2019-02-28] MEDS: ENOXAPARIN 40 MG/0.4 ML INJ SUB-Q SCH (23:12)
[2019-03-01 06:30] LABS: Chol/HDL Ratio 4.13 %
[2019-03-01] MEDS: FERROUS SULFATE 325 MG TAB PO SCH (10:16)
[2019-03-01] MEDS: ASPIRIN 325 MG TAB PO SCH (10:16)
[2019-03-01] MEDS: clonazePAM 0.5 MG TAB PO SCH (10:16)
[2019-03-01] MEDS: DOCUSATE SODIUM 100 MG CAP PO SCH (10:16)
[2019-03-01] MEDS ORDERED: LORazepam 2 MG/ML VIAL IV NR (10:30)
--- NOTE | 2019-03-01 10:48 | Gastroenterology Consultation ---
History of Present Illness - Reason for Consult Consult date: 03/01/19 N/V Requesting physician: ARDEN IZAGUIRRE - History of Present Illness Patient is a 58 y/o female retirement resident with PMH of HTN, anemia, GERD, HLD, Bo[place]'s disease, dementia, and mood disorder/depression who was brought to ED for evaluation of left sided weakness thought to be 2/2 TIA vs underlying Anabela's disease. Neurology following with MRI pending. GI has been consulted for vomiting/dysphagia. This morning patient was resting in bed w/o acute distress. Patient unable to provide history due to cognitive impairment (no family at bedside; history obtained via chart review). Per nursing, patient had episodes of vomiting yesterday which seems to now be resolved with no vomiting so far today. Evaluated by REAL ESTATE ASSET MANAGER this am with recommendations for pureed diet given. No evidence of abd pain or abd distention upon exam. Prior GI history or endoscopic evaluation unknown. Past History Past Medical History: other (see HPI) Past Surgical History: No surgical history, Other (Reviewed) Social history: single, other (retirement resident). denies: smoking, alcohol abuse, prescription drug abuse Family history: hypertension Medications and Allergies Allergies Allergy/AdvReac Type Severity Reaction Status Date / Time No Known Allergies Allergy Verified 12/25/18 18:35 Home Medications Medication Instructions Recorded Confirmed Last Taken Type Amlodipine Besylate [Norvasc] 2.5 mg PO DAILY 02/27/19 02/27/19 Unknown History Docusate Sodium [Colace] 100 mg PO DAILY 02/27/19 02/27/19 Unknown History Ferrous Sulfate [Iron 325 MG] 325 mg PO DAILY 02/27/19 02/27/19 Unknown History Ketoconazole [Ketoconazole shampoo] 120 ml TP QWEEK 02/27/19 02/27/19 Unknown History Pravastatin [Pravachol] 10 mg PO QHS 02/27/19 02/27/19 Unknown History QUEtiapine [SEROquel] 100 mg PO QHS 02/27/19 02/27/19 Unknown History clonazePAM 0.5 mg PO DAILY 02/27/19 02/27/19 Unknown History Active Meds: Active Medications Aspirin (Aspirin) 325 mg PO QDAY [facility] Last Admin: 03/01/19 10:16 Dose: 325 mg Documented by: Atorvastatin Calcium (Lipitor) 40 mg PO QHS [facility] Last Admin: 02/28/19 23:12 Dose: 40 mg Documented by: Clonazepam (Klonopin) 0.5 mg PO DAILY [facility] Last Admin: 03/01/19 10:16 Dose: 0.5 mg Documented by: Docusate Sodium (Colace) 100 mg PO DAILY [facility] Last Admin: 03/01/19 10:16 Dose: 100 mg Documented by: Enoxaparin Sodium (Enoxaparin) 40 mg SUB-Q QDAY@2200 [facility] Last Admin: 02/28/19 23:12 Dose: 40 mg Documented by: Ferrous Sulfate (Feosol) 325 mg PO DAILY [facility] Last Admin: 03/01/19 10:16 Dose: 325 mg Documented by: Dextrose/Sodium Chloride (D5/0.45ns) 1,000 mls @ 42 mls/hr IV DIRECT [facility] Last Admin: 02/28/19 12:13 Dose: 42 mls/hr Documented by: Lorazepam (Ativan) 2 mg IV WATCH REPAIRER NR Stop: 03/01/19 14:00 Ondansetron HCl (Zofran) 4 mg IV Q4H PRN PRN Reason: Nausea And Vomiting Quetiapine Fumarate (Seroquel) 100 mg PO QHS [facility] Last Admin: 02/28/19 23:12 Dose: 100 mg Documented by: Sodium Chloride (Sodium Chloride Flush Syringe 10 Ml) 10 ml IV PRN PRN PRN Reason: LINE FLUSH medications reviewed/updated as required Review of Systems - Review of Systems ROS unobtainable: due to mental status Exam - Constitutional Vital Signs: Temp Pulse Resp BP Pulse Ox 97.6 F 76 16 139/114 74 L 03/01/19 04:48 03/01/19 04:48 03/01/19 04:48 03/01/19 04:48 03/01/19 04:48 General appearance: no acute distress, other (alert, + dysarthria) - Respiratory Respiratory effort: normal - Cardiovascular Rhythm: regular - Gastrointestinal General gastrointestinal: Present: soft, non-distended, normal bowel sounds - Integumentary Integumentary: Present: warm, dry - Labs CBC & Chem 7: 02/27/19 15:20 02/27/19 15:20 Lab Results: Laboratory Results - last 24 hr 0102/28/19 03/01/19 11:28 16:36 05:37 POC Glucose 89 108 H Hemoglobin A1c 4.9 Triglycerides Cholesterol LDL Cholesterol Direct HDL Cholesterol Cholesterol/HDL Ratio 03/01/19 03/01/19 05:37 07:51 POC Glucose 96 Hemoglobin A1c Triglycerides 92 Cholesterol 178 LDL Cholesterol Direct 133 H HDL Cholesterol 43 Cholesterol/HDL Ratio 4.13 Assessment and Plan 1.vomiting 2.dysphagia 3.H/o GERD 4.Anabela's disease/dementia 5.acute CVA vs TIA-neurology following; MRI pending -no episodes of vomiting so far today per nursing -REAL ESTATE ASSET MANAGER evaluation this am with recommendations for pureed diet -no plan for scope at this time -okay to start on diet as recommended by speech and monitor -start on PPI -continue supportive care with antiemtics -if vomiting re-occurs, recommend esophagram for further evaluation -will follow
--- NOTE | 2019-03-01 12:37 | Magnetic Resonance Report ---
MRI BRAIN WITHOUT CONTRAST INDICATION / CLINICAL INFORMATION: stroke. Bilateral lower extremity weakness. [place]'s disease TECHNIQUE: Multisequence, multiplanar images were obtained. COMPARISON: CT head dated 02/27/2019 FINDINGS: CEREBRAL and CEREBELLAR HEMISPHERES: No evidence of mass or mass effect. No midline shift. No acute hemorrhage. No diffusion restriction to suggest acute infarct. No extra-axial fluid collection. M ild diffuse volume loss and mild chronic microangiopathy in the white matter are noted. No chronic in farct. VENTRICLES: Normal in size and configuration for age. VISUALIZED ORBITS: No significant abnormality. VISUALIZED PARANASAL SINUSES: No significant abnormality. ADDITIONAL FINDINGS: None. IMPRESSION: Volume loss and chronic white matter changes. No evidence for hemorrhage, mass or acute ischemia. Signer Name: Torres Cunningham Jr, MD Signed: 03/01/2019 12:33 PM Workstation Name: [id number]
--- NOTE | 2019-03-01 12:39 | Magnetic Resonance Report ---
MRA HEAD WITHOUT CONTRAST HISTORY: Stroke, bilateral lower extremity weakness, [place]'s disease COMPARISON: None. TECHNIQUE: Routine MRA of the head is performed. 3-D/MIP reformats postprocessed. CONTRAST: None. FINDINGS: Intracranial vertebral arteries: No significant abnormality. Basilar artery: No significant abnormality. Posterior cerebral arteries: No significant abnormality. The P1 segments are hypoplastic bilaterally, right greater than left. Intracranial internal carotid arteries: No significant abnormality. Anterior cerebral arteries: No significant abnormality. Middle cerebral arteries: No significant abnormality. Additional findings: Large bilateral posterior communicating arteries are identified. IMPRESSION: Normal variant MRA head. No stenosis, occlusion or aneurysm. Signer Name: Trores Cunningham Jr, MD Signed: 03/01/2019 12:35 PM Workstation Name: [id number]
--- NOTE | 2019-03-01 13:06 | Progress Note ---
Assessment and Plan Patient is a 58-year-old woman with a history of [place]'s disease, hypertension, GERD, depression, who p/w left sided weakness. According to the patient's clinical findings, it is felt that the patient may have had a TIA. Alternatively, symptoms may be due to patient's underlying diagnosis of Anabela's disease. Plan: 1. Possible TIA: - Left sided weakness was reportedly noted by healthcare worker at nursing facility. No current weakness noted on exam at this time - Discussed patient's baseline, and patient is currently at baseline based on mental status and neurologic exam - MRI brain: no acute abnormalities - MRA head: no significant stenosis - CUS: no significant stenosis - Cont. ASA 81mg daily - Cont. statin - Telemetry monitoring while in house - PT/OT/ST - DVT Ppx: Recommend lovenox 2. Hypertension: - Recommend BP goal of normotension as patient is back at baseline, and currently has no left sided weakness. - Will sign off as neurologic investigations are complete and treatment plan is in place. Please call with any questions. Thank you for allowing me to take part in the care this patient. Jerzy Baker MD Neurology Subjective Date of service: 03/01/19 Principal diagnosis: TIA Interval history: No acute events overnight. Objective - Exam Narrative Exam: Patient is alert, awake, oriented to self only, follows one-step commands. Noted to have mild dysarthria which is baseline, no aphasia noted. Patient able to name objects. PERRL, EOMI, VFF, no facial weakness noted, tongue midline, b/l intact to LT. 4/5 strength in UE, 4/5 in LE. B/l intact to LT. B/l intact to FTN and HTS. 2+ reflexes throughout. Noted to have chorea movement during exam. - Vital Sign Vital Signs - 12hr 03/01/19 03/01/19 04:48 10:48 Temperature 97.6 F Pulse Rate 76 67 Respiratory 16 Rate Blood Pressure 139/114 148/93 O2 Sat by Pulse 74 L 96 Oximetry - General Apperance Constitutional: comfortable - EENT EENT: ATNC, PERRL, mucous membranes moist - Respiratory Respiratory: lungs clear, normal breath sounds - Cardiovascular Cardiovascular: regular rate, normal S1, normal S2 Extremities: no clubbing, cyanosis, no inflammation - Gastrointestinal Gastrointestinal: normoactive bowel sounds, soft, non-tender - Laboratory Findings CBC and BMP: 02/27/19 15:20 02/27/19 15:20 Abnormal Lab Findings: Abnormal Labs 02/27/19 02/27/19 02/28/19 15:20 15:20 16:36 Craig % (Auto) 9.2 H Craig # 0.9 H Thrombin Time 14.7 L POC Glucose 108 H LDL Cholesterol Direct 03/01/19 05:37 Craig % (Auto) Craig # Thrombin Time POC Glucose LDL Cholesterol Direct 133 H
--- NOTE | 2019-03-01 13:31 | Discharge Summary ---
Providers - Providers Date of Admission: 02/28/19 17:32 Attending physician: ARDEN IZAGUIRRE MD 02/28/19 Consult to Physician [CONS] Routine Comment: Consulting Provider: RAMIREZ SCHOFIELD Physician Instructions: Reason For Exam: cva, R side not moving 02/28/19 10:36 Occupational Therapy Evaluate and Treat [CONS] Routine Comment: Reason For Exam: Neuro deficits Physical Therapy Evaluation and Treat [CONS] Routine Comment: Reason For Exam: Neuro deficits 02/28/19 10:38 Consult to Dietitian/Nutrition [CONS] Routine Physician Instructions: Reason For Exam: Reason for Consult: Nutrition Recommendations Reason for Consult: Diet education 02/28/19 11:26 Speech Therapy Evaluation and Treat [CONS] Routine Reason For Exam: dysphagia 02/28/19 11:27 Speech Therapy Evaluation and Treat [CONS] Stat Reason For Exam: Difficulty swallow 02/28/19 16:44 Consult to Physician [CONS] Routine Comment: Consulting Provider: ANGELA SNOW Physician Instructions: Reason For Exam: n/v Primary care physician: [employer] SAL[employer] DIRECTOR Hospitalization Condition: Stable Hospital course: 58-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 She was brought from detention for decreased responsiveness and they stated that she was not moving her right side. acute CVA ruled out unclear if she did have a TIA, because her focal weakness was poorly characterized and she is unable to give hx MRI and MRA head, CUS neg -will place on meds for secondary prevention as could not rule out tia Anabela's disease/dementia; supportive care Dysphasia ST input appreciated, Pureed diet Nausea vomiting Antiemetics, GI consult appreciated, resolved with antiemetics, it appears that she ate too quickly DVT prophylaxis with Lovenox Disposition: DC/TX-03 [facility] Time spent for discharge: 33 mins Core Measure Documentation - Palliative Care Palliative Care/ Comfort Measures: Not Applicable - Core Measures Any of the following diagnoses?: none Exam - Constitutional Vitals: Temp Pulse Resp BP Pulse Ox 97.6 F 67 16 148/93 96 03/01/19 04:48 03/01/19 10:48 03/01/19 04:48 03/01/19 10:48 03/01/19 10:48 General appearance: Present: no acute distress, well-nourished - EENT Eyes: Present: PERRL ENT: hearing intact, clear oral mucosa - Neck Neck: Present: supple, normal ROM - Respiratory Respiratory effort: normal Respiratory: bilateral: CTA - Cardiovascular Heart Sounds: Present: S1 & S2. Absent: rub, click - Extremities Extremities: pulses symmetrical, No edema Peripheral Pulses: within normal limits - Abdominal General gastrointestinal: Present: soft, non-tender, non-distended, normal bowel sounds Female genitourinary: Present: normal - Integumentary Integumentary: Present: clear, warm, dry - Musculoskeletal Musculoskeletal: strength equal bilaterally - Psychiatric Psychiatric: no appropriate mood/affect, no intact judgment & insight - Neurologic Neurologic: CNII-XII intact, moves all extremities, other (movement disoder noted, demented) Plan Follow up with: PRIMARY CARE, [Primary Care Provider] - 7 Days Prescriptions: Pravastatin [Pravachol] 40 mg PO QHS #90 tablet Aspirin EC [Halfprin EC] 81 mg PO QDAY #90 tablet.
[2019-03-01 15:43] VITALS: BP 137/87
== END 2019-03-01 18:15 | DRG 69 ==
LOC: ED 14:56 → 3A 16:27 → OBSVTOIN 02-28 17:32
PROVIDERS: ADMIT Internal Medicine; ATTEND Internal Medicine
DX: G45.9 Transient cerebral ischemic attack, unspecified (principal); G10 Huntington's disease; R11.2 Nausea with vomiting, unspecified; I10 Essential (primary) hypertension; E78.5 Hyperlipidemia, unspecified; F32.9 Major depressive disorder, single episode, unspecified; K21.9 Gastro-esophageal reflux disease without esophagitis; F39 Unspecified mood [affective] disorder; R13.10 Dysphagia, unspecified; F03.90 Unspecified dementia, unspecified severity, without behavioral disturbance, psychotic disturbance, mood disturbance, and anxiety
CPT/HCPCS: 36415; 70450; 70544; 70551; 80048; 80061; 82962; 83036; 84484; 85025; 85610; 85670; 85730; 93005; 93010; 93306; 93880; G0378; A9270-GY; J1650; J2060

== ENCOUNTER 2021-05-08 08:15 | Outpatient (CLI) | payer MEDICAID ==
--- NOTE | 2021-05-08 11:41 | Fluoroscopy Report ---
MODIFIED BARIUM SWALLOW INDICATION: R13.12 DYSPHAGIA TECHNIQUE: Swallowing was evaluated in the lateral position under direct fluoroscopy. FINDINGS: The patient was evaluated with thin liquid, nectar and puree consistencies. Nonsilent aspiration was witnessed with thin liquids and nectar consistencies. Moderate vallecular an d piriform sinus residuals was seen with all 3 consistencies. IMPRESSION: Aspiration with thin liquids and nectar. Residuals as described. Please correlate with t he formal report by speech therapy. Fluoroscopic time: 0.9 minutes Number of fluoroscopic images: 1 Signer Name: Torres Cunningham Jr, MD Signed: 05/08/2021 11:34 AM Workstation Name: [id number]
== END 2021-05-08 08:16 | disposition home or self-care (01) ==
LOC: PT 08:15
PROVIDERS: ATTEND Internal Medicine
DX: R13.12 Dysphagia, oropharyngeal phase (principal)
CPT/HCPCS: 74230

== ENCOUNTER 2021-05-13 11:51 | Inpatient (IN) | payer MEDICAID ==
[2021-05-13 13:20] LABS: Basophils % (Auto) 0.6 % (0.0-1.8); Eosinophils # (Auto) 0.1 K/mm3 (0.0-0.4); Eosinophils % (Auto) 1.8 % (0.0-4.3); Hematocrit 37.6 % (30.3-42.9); Hemoglobin 12.1 gm/dl (10.1-14.3); Lymphocytes # (Auto) 1.7 K/mm3 (1.2-5.4); Lymphocytes % (Auto) 28.1 % (13.4-35.0); Mean Corpuscular HGB Conc 32 % (30-34); Mean Corpuscular Volume 92 fl (79-97); Monocytes # (Auto) 0.4 K/mm3 (0.0-0.8); Monocytes % (Auto) 6.3 % (0.0-7.3); Platelet Count 210 K/mm3 (140-440); Red Blood Count 4.08 M/mm3 (3.65-5.03); Red Cell Distribution Width 13.1 % (13.2-15.2)
[2021-05-13 13:39] LABS: Alanine Aminotransferase 9 units/L (7-56); Blood Urea Nitrogen 5 mg/dL (7-17); Calcium 9.3 mg/dL (8.4-10.2); Hemolysis Index 60
[2021-05-13 13:42] LABS: BUN/Creatinine Ratio 13
--- NOTE | 2021-05-13 15:06 | Emergency Department Report ---
ED General Adult HPI - General Chief complaint: Medical Clearance Stated complaint: G TUBE PLACEMENT Time Seen by Provider: 05/13/21 12:16 Source: EMS Mode of arrival: Stretcher Limitations: Physical Limitation - History of Present Illness Initial comments: Patient is a 60-year-old F [place] female with a past medical history of [place]'s disease and stroke with some residual dysphagia. Patient sent in from her nursing facility for G-tube placement. Patient is been unable to keep anything down by mouth. Patient is a aspiration risk. Sent in by her doctor Dr. Lomas. - Related Data Home Medications Medication Instructions Recorded Confirmed Last Taken Amlodipine Besylate [Norvasc] 2.5 mg PO DAILY 02/27/19 02/27/19 Unknown Docusate Sodium [Colace CAP] 100 mg PO DAILY 02/27/19 02/27/19 Unknown Ferrous Sulfate [Iron 325 MG] 325 mg PO DAILY 02/27/19 02/27/19 Unknown Ketoconazole [Ketoconazole shampoo] 120 ml TP QWEEK 02/27/19 02/27/19 Unknown QUEtiapine [SEROquel] 100 mg PO QHS 02/27/19 02/27/19 Unknown clonazePAM 0.5 mg PO DAILY 02/27/19 02/27/19 Unknown Previous Rx's Medication Instructions Recorded Last Taken Type Aspirin EC [Halfprin EC] 81 mg PO QDAY #90 tablet. 03/01/19 Unknown Rx Pravastatin [Pravachol] 40 mg PO QHS #90 tablet 03/01/19 Unknown Rx Allergies Allergy/AdvReac Type Severity Reaction Status Date / Time No Known Allergies Allergy Verified 05/13/21 11:55 ED Review of Systems ROS: Stated complaint: G TUBE PLACEMENT Other details as noted in HPI Comment: Unobtainable due to pts medical conditions ED Past Medical Hx - Past Medical History Hx Hypertension: Yes Hx CVA: Yes Hx Diabetes: No Hx GERD: Yes Hx Renal Disease: No Hx Arthritis: No Hx Seizures: No Hx Asthma: No Additional medical history: huntingtons disease, HTN, hyperlipidemia , Anemia, Mood disorder - Surgical History Hx Pacemaker: No - Social History Smoking Status: Unknown if ever smoked Substance Use Type: None - Medications Home Medications: Home Medications Medication Instructions Recorded Confirmed Last Taken Type Amlodipine Besylate [Norvasc] 2.5 mg PO DAILY 02/27/19 02/27/19 Unknown History Docusate Sodium [Colace CAP] 100 mg PO DAILY 02/27/19 02/27/19 Unknown History Ferrous Sulfate [Iron 325 MG] 325 mg PO DAILY 02/27/19 02/27/19 Unknown History Ketoconazole [Ketoconazole shampoo] 120 ml TP QWEEK 02/27/19 02/27/19 Unknown History QUEtiapine [SEROquel] 100 mg PO QHS 02/27/19 02/27/19 Unknown History clonazePAM 0.5 mg PO DAILY 02/27/19 02/27/19 Unknown History Aspirin EC [Halfprin EC] 81 mg PO QDAY #90 tablet. 03/01/19 Unknown Rx Pravastatin [Pravachol] 40 mg PO QHS #90 tablet 03/01/19 Unknown Rx ED Physical Exam - General Limitations: Physical Limitation General appearance: alert, in no apparent distress - Head Head exam: Present: atraumatic, normocephalic - Eye Eye exam: Present: normal appearance - ENT ENT exam: Present: mucous membranes dry - Neck Neck exam: Present: normal inspection - Respiratory Respiratory exam: Present: normal lung sounds bilaterally. Absent: respiratory distress, wheezes, rales, rhonchi - Cardiovascular Cardiovascular Exam: Present: regular rate, normal rhythm. Absent: systolic murmur, diastolic murmur, rubs, gallop - GI/Abdominal GI/Abdominal exam: Present: soft, normal bowel sounds. Absent: distended, tenderness, guarding, rebound - Extremities Exam Extremities exam: Present: normal inspection - Back Exam Back exam: Present: normal inspection - Neurological Exam Neurological exam: Present: alert, oriented X3 - Psychiatric Psychiatric exam: Present: normal affect, normal mood - Skin Skin exam: Present: warm, dry, intact, normal color. Absent: rash ED Course Vital Signs 05/13/21 12:05 Temperature 97 F L Pulse Rate 61 Blood Pressure 129/83 [Left] O2 Sat by Pulse 98 Oximetry ED Medical Decision Making - Lab Data Result diagrams: 05/13/21 12:59 05/13/21 12:59 Lab Results 05/13/21 05/13/21 Range/Units 12:59 12:59 WBC 6.2 (4.5-11.0) K/mm3 RBC 4.08 (3.65-5.03) M/mm3 Hgb 12.1 (10.1-14.3) gm/dl Hct 37.6 (30.3-42.9) % MCV 92 (79-97) fl MCH 30 (28-32) pg MCHC 32 (30-34) % RDW 13.1 L (13.2-15.2) % Plt Count 210 (140-440) K/mm3 Lymph % (Auto) 28.1 (13.4-35.0) % Ross % (Auto) 6.3 (0.0-7.3) % Eos % (Auto) 1.8 (0.0-4.3) % Baso % (Auto) 0.6 (0.0-1.8) % Lymph # (Auto) 1.7 (1.2-5.4) K/mm3 Ross # (Auto) 0.4 (0.0-0.8) K/mm3 Eos # (Auto) 0.1 (0.0-0.4) K/mm3 Baso # (Auto) 0.0 (0.0-0.1) K/mm3 Seg Neutrophils % 63.2 (40.0-70.0) % Seg Neutrophils # 3.9 (1.8-7.7) K/mm3 Sodium 137 (137-145) mmol/L Potassium 4.5 (3.6-5.0) mmol/L Chloride 104.6 (98-107) mmol/L Carbon Dioxide 21 L (22-30) mmol/L Anion Gap 16 mmol/L BUN 5 L (7-17) mg/dL Creatinine 0.4 L (0.6-1.2) mg/dL Estimated GFR > 60 ml/min BUN/Creatinine Ratio 13 % Glucose 89 (65-100) mg/dL Calcium 9.3 (8.4-10.2) mg/dL Total Bilirubin 0.30 (0.1-1.2) mg/dL AST 16 (5-40) units/L ALT 9 (7-56) units/L Alkaline Phosphatase 96 (35-129) units/L Total Protein 7.1 (6.3-8.2) g/dL Albumin 4.0 (3.9-5) g/dL Albumin/Globulin Ratio 1.3 % - Medical Decision Making Spoke with Dr. Romero with GI states that they are willing to place a G-tube for the patient per the request of the patient's primary care physician. Patient to be admitted to the hospital service for observation. Critical care attestation.: If time is entered above; I have spent that time in minutes in the direct care of this critically ill patient, excluding procedure time. ED Disposition Clinical Impression: Dysphagia, Failure to thrive Disposition: 09 ADMITTED INPATIENT Is pt being admited?: Yes Does the pt Need Aspirin: No Condition: Stable Instructions: Dysphagia Time of Disposition: 15:06
[2021-05-13] MEDS ORDERED: ACETAMINOPHEN 650 MG RECT SUPP PR PRN (17:26)
[2021-05-13] MEDS ORDERED: ONDANSETRON 4 MG/2 ML INJ IV PRN (17:26)
[2021-05-13] MEDS ORDERED: MORPHINE 2 MG/1 ML INJ IV PRN (17:26)
[2021-05-13] MEDS ORDERED: METOCLOPRAMIDE 10 MG/2 ML INJ IV PRN (17:26)
[2021-05-13] MEDS ORDERED: SODIUM CHLORIDE 0.9% 1000 ML 1,000 ML IV SCH (17:30)
--- NOTE | 2021-05-13 17:32 | History and Physical Report ---
History of Present Illness Date of examination: 05/13/21 Date of admission: 05/13/2021 Chief complaint: Poor p.o. intake and severe dysphagia History of present illness: 60-year-old History of Sanders's disease stroke right-sided weakness muscle atrophy sent in from nursing facility for PEG tube placement. Patient has not been able to swallow drink anything. Patient has aspiration risk. Patient is cachectic. Patient is alert but not oriented to place. Mucous membranes are Dry. - Past Medical History --Hypertension: Yes --CVA: Yes --GERD: Yes --Additional medical history: huntingtons disease, HTN, hyperlipidemia , Anemia, Mood disorder - Surgical History --No - Social History --Smoking Status: Unknown if ever smoked --Substance Use Type: None - Family history --Htn - Medications --Home Medications: Home Medications Medication Instructions Recorded Confirmed Last Taken Type Amlodipine Besylate [Norvasc] 2.5 mg PO DAILY 02/27/19 02/27/19 Unknown History Docusate Sodium [Colace CAP] 100 mg PO DAILY 02/27/19 02/27/19 Unknown History Ferrous Sulfate [Iron 325 MG] 325 mg PO DAILY 02/27/19 02/27/19 Unknown History Ketoconazole [Ketoconazole shampoo] 120 ml TP QWEEK 02/27/19 02/27/19 Unknown History QUEtiapine [SEROquel] 100 mg PO QHS 02/27/19 02/27/19 Unknown History clonazePAM 0.5 mg PO DAILY 02/27/19 02/27/19 Unknown History Aspirin EC [Halfprin EC] 81 mg PO QDAY #90 tablet. 03/01/19 Unknown Rx Pravastatin [Pravachol] 40 mg PO QHS #90 tablet 03/01/19 Unknown Rx Review of Systems ROS: Stated complaint: G TUBE PLACEMENT Other details as noted in HPI Comment: Unobtainable due to pts medical conditions Medications and Allergies Allergies Allergy/AdvReac Type Severity Reaction Status Date / Time No Known Allergies Allergy Verified 05/13/21 11:55 Home Medications Medication Instructions Recorded Confirmed Last Taken Type Amlodipine Besylate [Norvasc] 2.5 mg PO DAILY 02/27/19 05/13/21 Unknown History Docusate Sodium [Colace CAP] 100 mg PO DAILY 02/27/19 05/13/21 Unknown History Ferrous Sulfate [Iron 325 MG] 325 mg PO DAILY 02/27/19 05/13/21 Unknown History Ketoconazole [Ketoconazole shampoo] 120 ml TP QWEEK 02/27/19 05/13/21 Unknown History QUEtiapine [SEROquel] 100 mg PO QHS 02/27/19 05/13/21 Unknown History clonazePAM 0.5 mg PO DAILY 02/27/19 05/13/21 Unknown History Aspirin EC [Halfprin EC] 81 mg PO QDAY #90 tablet. 03/01/19 05/13/21 Unknown Rx Pravastatin [Pravachol] 40 mg PO QHS #90 tablet 03/01/19 05/13/21 Unknown Rx Exam - Constitutional Vitals: Temp Pulse Resp BP Pulse Ox 97 F L 61 129/83 98 05/13/21 12:05 05/13/21 12:05 05/13/21 12:05 05/13/21 12:05 General appearance: Present: no acute distress, cachectic - EENT Eyes: Present: PERRL ENT: hearing intact, clear oral mucosa - Neck Neck: Present: supple, normal ROM - Respiratory Respiratory effort: normal Respiratory: bilateral: CTA - Cardiovascular Heart rate: 78 Rhythm: regular Heart Sounds: Present: S1 & S2. Absent: rub, click - Extremities Extremities: no ischemia, pulses symmetrical, No edema Peripheral Pulses: within normal limits - Abdominal General gastrointestinal: Present: soft, non-tender, non-distended, normal bowel sounds Female genitourinary: Present: normal - Integumentary Integumentary: Present: clear, warm, dry - Musculoskeletal Musculoskeletal: generalized weakness, other (Contractures in the right present, right side upper and lower extremity muscle atrophy present.) - Psychiatric Psychiatric: other (Alert but not oriented) - Neurologic Neurologic: focal deficits (Right hemiparesis. Problem contractures in the righ t hand., Alert but not oriented.), moves all extremities Results - Labs CBC & Chem 7: 05/14/21 05:46 05/14/21 05:46 Labs: Laboratory Last Values WBC 6.2 K/mm3 (4.5-11.0) 05/13/21 12:59 RBC 4.08 M/mm3 (3.65-5.03) 05/13/21 12:59 Hgb 12.1 gm/dl (10.1-14.3) 05/13/21 12:59 Hct 37.6 % (30.3-42.9) 05/13/21 12:59 MCV 92 fl (79-97) 05/13/21 12:59 MCH 30 pg (28-32) 05/13/21 12:59 MCHC 32 % (30-34) 05/13/21 12:59 RDW 13.1 % (13.2-15.2) L 05/13/21 12:59 Plt Count 210 K/mm3 (140-440) 05/13/21 12:59 Lymph % (Auto) 28.1 % (13.4-35.0) 05/13/21 12:59 [place] % (Auto) 6.3 % (0.0-7.3) 05/13/21 12:59 Eos % (Auto) 1.8 % (0.0-4.3) 05/13/21 12:59 Baso % (Auto) 0.6 % (0.0-1.8) 05/13/21 12:59 Lymph # (Auto) 1.7 K/mm3 (1.2-5.4) 05/13/21 12:59 [place] # (Auto) 0.4 K/mm3 (0.0-0.8) 05/13/21 12:59 Eos # (Auto) 0.1 K/mm3 (0.0-0.4) 05/13/21 12:59 Baso # (Auto) 0.0 K/mm3 (0.0-0.1) 05/13/21 12:59 Seg Neutrophils % 63.2 % (40.0-70.0) 05/13/21 12:59 Seg Neutrophils # 3.9 K/mm3 (1.8-7.7) 05/13/21 12:59 Sodium 137 mmol/L (137-145) 05/13/21 12:59 Potassium 4.5 mmol/L (3.6-5.0) 05/13/21 12:59 Chloride 104.6 mmol/L (98-107) 05/13/21 12:59 Carbon Dioxide 21 mmol/L (22-30) L 05/13/21 12:59 Anion Gap 16 mmol/L 05/13/21 12:59 BUN 5 mg/dL (7-17) L 05/13/21 12:59 Creatinine 0.4 mg/dL (0.6-1.2) L 05/13/21 12:59 Estimated GFR > 60 ml/min 05/13/21 12:59 BUN/Creatinine Ratio 13 % 05/13/21 12:59 Glucose 89 mg/dL (65-100) 05/13/21 12:59 Calcium 9.3 mg/dL (8.4-10.2) 05/13/21 12:59 Total Bilirubin 0.30 mg/dL (0.1-1.2) 05/13/21 12:59 AST 16 units/L (5-40) 05/13/21 12:59 ALT 9 units/L (7-56) 05/13/21 12:59 Alkaline Phosphatase 96 units/L (35-129) 05/13/21 12:59 Total Protein 7.1 g/dL (6.3-8.2) 05/13/21 12:59 Albumin 4.0 g/dL (3.9-5) 05/13/21 12:59 Albumin/Globulin Ratio 1.3 % 05/13/21 12:59 Assessment and Plan Advance Directives: Yes (Full code) VTE prophylaxis?: Chemical Plan of care discussed with patient/family: Yes - Patient Problems (1) Dysphagia Current Visit: Yes Status: Acute Qualifiers: Dysphagia type: oropharyngeal phase Qualified Code(s): R13.12 - Dysphagia, oropharyngeal phase Plan to address problem: 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 intake Dietary consult for tube feeding and nutrition (3) Failure to thrive Current Visit: Yes Status: Chronic Qualifiers: Failure to thrive age range: in adult Qualified Code(s): R62.7 - Adult failure to thrive Plan to address problem: Secondary to Sanders's disease and CVA Needs PEG tube Patient is medically cleared (4) Hypertension Current Visit: Yes Status: Acute Plan to address problem: Continue antihypertensives and adjust medications as necessary (5) Mood disorder Current Visit: Yes Status: Chronic Plan to address problem: On Seroquel (6) DVT prophylaxis Current Visit: No Status: Acute Plan to address problem: On heparin and GI prophylaxis (7) Advance care planning Current Visit: Yes Status: Acute Plan to address problem: Family was educated about the disease care plan diagnosis and prognosis. Patient is full code. Family acknowledged understanding and agreement with care plan. +30 minutes.
[2021-05-13] MEDS: FAMOTIDINE 20 MG/2 ML INJ IV SCH (21:40)
[2021-05-13] MEDS ORDERED: HEPARIN 5,000 UNIT/1 ML VIAL SUB-Q SCH (22:00)
[2021-05-14 06:14] LABS: Basophils % (Auto) 0.6 % (0.0-1.8); Eosinophils # (Auto) 0.1 K/mm3 (0.0-0.4); Eosinophils % (Auto) 2.1 % (0.0-4.3); Hematocrit 37.1 % (30.3-42.9); Hemoglobin 11.9 gm/dl (10.1-14.3); Lymphocytes # (Auto) 1.6 K/mm3 (1.2-5.4); Lymphocytes % (Auto) 30.9 % (13.4-35.0); Mean Corpuscular HGB Conc 32 % (30-34); Mean Corpuscular Volume 91 fl (79-97); Monocytes # (Auto) 0.4 K/mm3 (0.0-0.8); Monocytes % (Auto) 7.9 % (0.0-7.3); Platelet Count 220 K/mm3 (140-440); Red Blood Count 4.06 M/mm3 (3.65-5.03); Red Cell Distribution Width 13.1 % (13.2-15.2)
[2021-05-14 06:29] LABS: Alanine Aminotransferase 10 units/L (7-56); Albumin 3.8 g/dL (3.9-5); Blood Urea Nitrogen 9 mg/dL (7-17); Hemolysis Index 24
[2021-05-14 06:34] LABS: BUN/Creatinine Ratio 15
[2021-05-14] MEDS ORDERED: WATER FOR IRRIG STERILE 250 ML BOTTLE IR ONE (09:19)
[2021-05-14] MEDS ORDERED: WATER FOR IRRIG STERILE 1,000 ML BOTTLE ONE (09:19)
[2021-05-14] MEDS: FAMOTIDINE 20 MG/2 ML INJ IV SCH ×2 (09:20→21:05)
--- NOTE | 2021-05-14 10:55 | Progress Note ---
Assessment and Plan Assessment and plan: #Dysphagia -patient has [place]'s disease and old CVA with severe oropharyngeal dysphagia -PEG tube placement later today -NPO status -nutrition consult to start tube feeding #Failure to thrive -Secondary to Anabela's disease and CVA -will address with PEG tube to provide feedings #Malnutrition Secondary to [place]'s disease and CVA and poor p.o. intake Dietary consult for tube feeding and nutrition #Hypertension -Continue antihypertensives and adjust medications as necessary #history of CVA -BP control, continue ASA + statin #Unspecified mood disorder -continue seroquel History Interval history: No acute events overnight per nursing. Patient pleasantly confused. Did not respond to verbal prompts, but alert. Hospitalist Physical - Physical exam Narrative exam: GENERAL: Thin, cachectic. In no acute distress. HEENT: Normocephalic. Atraumatic. NECK: Supple. CHEST/LUNGS: CTAB on room air HEART/CARDIOVASCULAR: RRR. No murmur, rubs or gallops appreciated. ABDOMEN: +BS. NT/ND. SKIN: No rashes noted. NEURO: No focal motor deficit appreciated MUSCULOSKELETAL: No joint effusion EXTREMITIES: No cyanosis, clubbing or edema. PSYCH: Confused. - Constitutional Vitals: Temp Pulse Resp BP Pulse Ox 98.0 F 61 19 123/79 96 05/14/21 05:08 05/14/21 05:08 05/14/21 05:08 05/14/21 05:08 05/14/21 09:57 General appearance: Present: no acute distress, cachectic Results - Labs CBC & Chem 7: 05/14/21 05:46 05/14/21 05:46 Labs: Laboratory Last Values WBC 5.3 K/mm3 (4.5-11.0) 05/14/21 05:46 RBC 4.06 M/mm3 (3.65-5.03) 05/14/21 05:46 Hgb 11.9 gm/dl (10.1-14.3) 05/14/21 05:46 Hct 37.1 % (30.3-42.9) 05/14/21 05:46 MCV 91 fl (79-97) 05/14/21 05:46 MCH 29 pg (28-32) 05/14/21 05:46 MCHC 32 % (30-34) 05/14/21 05:46 RDW 13.1 % (13.2-15.2) L 05/14/21 05:46 Plt Count 220 K/mm3 (140-440) 05/14/21 05:46 Lymph % (Auto) 30.9 % (13.4-35.0) 05/14/21 05:46 [place] % (Auto) 7.9 % (0.0-7.3) H 05/14/21 05:46 Eos % (Auto) 2.1 % (0.0-4.3) 05/14/21 05:46 Baso % (Auto) 0.6 % (0.0-1.8) 05/14/21 05:46 Lymph # (Auto) 1.6 K/mm3 (1.2-5.4) 05/14/21 05:46 [place] # (Auto) 0.4 K/mm3 (0.0-0.8) 05/14/21 05:46 Eos # (Auto) 0.1 K/mm3 (0.0-0.4) 05/14/21 05:46 Baso # (Auto) 0.0 K/mm3 (0.0-0.1) 05/14/21 05:46 Seg Neutrophils % 58.5 % (40.0-70.0) 05/14/21 05:46 Seg Neutrophils # 3.1 K/mm3 (1.8-7.7) 05/14/21 05:46 Sodium 138 mmol/L (137-145) 05/14/21 05:46 Potassium 3.7 mmol/L (3.6-5.0) 05/14/21 05:46 Chloride 103.0 mmol/L (98-107) 05/14/21 05:46 Carbon Dioxide 23 mmol/L (22-30) 05/14/21 05:46 Anion Gap 16 mmol/L 05/14/21 05:46 BUN 9 mg/dL (7-17) 05/14/21 05:46 Creatinine 0.6 mg/dL (0.6-1.2) 05/14/21 05:46 Estimated GFR > 60 ml/min 05/14/21 05:46 BUN/Creatinine Ratio 15 % 05/14/21 05:46 Glucose 85 mg/dL (65-100) 05/14/21 05:46 Calcium 9.0 mg/dL (8.4-10.2) 05/14/21 05:46 Total Bilirubin 0.40 mg/dL (0.1-1.2) 05/14/21 05:46 AST 16 units/L (5-40) 05/14/21 05:46 ALT 10 units/L (7-56) 05/14/21 05:46 Alkaline Phosphatase 99 units/L (35-129) 05/14/21 05:46 Total Protein 7.7 g/dL (6.3-8.2) 05/14/21 05:46 Albumin 3.8 g/dL (3.9-5) L 05/14/21 05:46 Albumin/Globulin Ratio 1.0 % 05/14/21 05:46 Acevedo/IV: Voiding Method Incontinent Active Medications - Current Medications Current Medications: Generic Name Dose Route Start Last Admin Trade Name Freq PRN Reason Stop Dose Admin Acetaminophen 650 mg 05/13/21 17:26 Acetaminophen 650 Mg Rect Supp ID Q4H PRN Pain MILD(1-3)/Fever >100.5/PUCKETT Famotidine 20 mg 05/13/21 22:00 05/14/21 09:20 Famotidine 20 Mg/2 Ml Inj IV 20 mg BID CAMRON Administration Sodium Chloride 1,000 mls @ 75 mls/hr 05/13/21 17:30 05/13/21 22:41 Nacl 0.9% 1000 Ml IV 75 mls/hr DIRECT CAMRON Administration Metoclopramide HCl 10 mg 05/13/21 17:26 Metoclopramide 10 Mg/2 Ml Inj IV Q6H PRN Nausea And Vomiting Morphine Sulfate 2 mg 05/13/21 17:26 Morphine 2 Mg/1 Ml Inj IV Q4H PRN Pain, Moderate (4-6) Ondansetron HCl 4 mg 05/13/21 17:26 Ondansetron 4 Mg/2 Ml Inj IV Q8H PRN Nausea And Vomiting Sodium Chloride 10 ml 05/13/21 22:00 05/14/21 09:20 Sodium Chloride 0.9% 10 Ml Flush Syringe IV 10 ml BID CAMRON Administration Sodium Chloride 10 ml 05/13/21 17:26 Sodium Chloride 0.9% 10 Ml Flush Syringe IV PRN PRN LINE FLUSH
[2021-05-14] MEDS ORDERED: NON-FORMULARY EACH (Amlodipine Besylate [Norvasc] 2.5 MG Tablet) PO SCH (11:00)
[2021-05-14] MEDS: amLODIPine 5 MG TAB PO SCH (11:30)
[2021-05-14] MEDS: D5W/0.45% NACL 1,000 ML IV SCH (13:03)
[2021-05-14] MEDS: QUEtiapine 100 MG TAB PO SCH (21:05)
[2021-05-14] MEDS: PRAVASTATIN 40 MG TAB PO SCH (21:05)
[2021-05-15] MEDS: D5W/0.45% NACL 1,000 ML IV SCH ×2 (02:35→16:43)
--- NOTE | 2021-05-15 05:16 | Consultation ---
DATE OF CONSULTATION: 05/14/2021 REFERRING PHYSICIAN: Kristi Guzman MD INDICATION: 1. Weight loss. 2. Dysphagia. HISTORY OF PRESENT ILLNESS: The patient is a 60-year-old black female with history of [place]'s disease as well as stroke, muscular atrophy, now being seen for PEG tube placement. The patient has not been able to swallow or drink anything over recent days and this has led to progressive weight loss. The patient has been deemed risk for aspiration. GI is consulted for PEG tube placement. No other specific GI complaints including nausea, vomiting, diarrhea, constipation or rectal bleeding. PAST MEDICAL HISTORY: 1. Anabela's disease. 2. CVA. MEDICATIONS: Reviewed and updated in chart. ALLERGIES: No known drug allergies. SOCIAL HISTORY: Denies alcohol, tobacco or drug abuse. FAMILY HISTORY: Colon cancer, IBD or liver disease. REVIEW OF SYSTEMS: GENERAL: Reports some weakness. HEENT: Denies visual complaints or tinnitus. PULMONARY: No shortness of breath, chest pain. GASTROINTESTINAL: Denies specific complaints. All points of 13-point review of system otherwise negative. PHYSICAL EXAMINATION: VITAL SIGNS: Temperature of 98.3, pulse 60, respirations 18, blood pressure 130/75. GENERAL: Fairly thin female in no acute distress. HEENT: Pupils round and reactive. PULMONARY: Clear to auscultation bilaterally. CARDIOVASCULAR: Regular rate and rhythm. Normal S1, S2. ABDOMEN: Positive bowel sounds, soft. SKIN: No obvious rashes. LABORATORY DATA: Pertinent for Chem-7 within normal limits. LFTs within normal limits. CBC within normal limits. ASSESSMENT: A 60-year-old female with [place]'s disease and a history of CVA, now progressively cachectic with weight loss and muscle atrophy, now being seen for PEG tube placement after being deemed risk for aspiration. PLAN: 1. NPO after midnight. 2. Hold antiplatelet agents. 3. Plan EGD with PEG tube placement in a.m. TID: [id number] RECEIPT: [id number] [facility]/LUCY/PATRICIA
--- NOTE | 2021-05-15 07:23 | Progress Note ---
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 intake -Dietary consult for tube feeding and nutrition #Hypertension -Continue antihypertensives and adjust medications as necessary #history of CVA -BP control, continue statin -ASA held for Gtube placement #Unspecified mood disorder -continue seroquel History Interval history: No acute events overnight per nursing. Patient alert and actively trying to get out of bed. Unable to respond appropriately to conversation. Hospitalist Physical - Physical exam Narrative exam: GENERAL: Thin, cachectic. In no acute distress. CHEST/LUNGS: CTAB on room air HEART/CARDIOVASCULAR: RRR. No murmur, rubs or gallops appreciated. ABDOMEN: +BS. NT/ND. SKIN: No rashes noted. NEURO: No focal motor deficit appreciated MUSCULOSKELETAL: No joint effusion EXTREMITIES: No cyanosis, clubbing or edema. PSYCH: Confused. - Constitutional Vitals: Temp Pulse Resp BP Pulse Ox 98.3 F 69 18 128/75 97 05/15/21 05:13 05/15/21 05:13 05/15/21 05:13 05/15/21 05:13 05/15/21 05:13 General appearance: Present: no acute distress, cachectic Results - Labs CBC & Chem 7: 05/15/21 06:47 05/15/21 06:47 Labs: Laboratory Last Values WBC 5.3 K/mm3 (4.5-11.0) 05/14/21 05:46 RBC 4.06 M/mm3 (3.65-5.03) 05/14/21 05:46 Hgb 11.9 gm/dl (10.1-14.3) 05/14/21 05:46 Hct 37.1 % (30.3-42.9) 05/14/21 05:46 MCV 91 fl (79-97) 05/14/21 05:46 MCH 29 pg (28-32) 05/14/21 05:46 MCHC 32 % (30-34) 05/14/21 05:46 RDW 13.1 % (13.2-15.2) L 05/14/21 05:46 Plt Count 220 K/mm3 (140-440) 05/14/21 05:46 Lymph % (Auto) 30.9 % (13.4-35.0) 05/14/21 05:46 [place] % (Auto) 7.9 % (0.0-7.3) H 05/14/21 05:46 Eos % (Auto) 2.1 % (0.0-4.3) 05/14/21 05:46 Baso % (Auto) 0.6 % (0.0-1.8) 05/14/21 05:46 Lymph # (Auto) 1.6 K/mm3 (1.2-5.4) 05/14/21 05:46 [place] # (Auto) 0.4 K/mm3 (0.0-0.8) 05/14/21 05:46 Eos # (Auto) 0.1 K/mm3 (0.0-0.4) 05/14/21 05:46 Baso # (Auto) 0.0 K/mm3 (0.0-0.1) 05/14/21 05:46 Seg Neutrophils % 58.5 % (40.0-70.0) 05/14/21 05:46 Seg Neutrophils # 3.1 K/mm3 (1.8-7.7) 05/14/21 05:46 Sodium 138 mmol/L (137-145) 05/14/21 05:46 Potassium 3.7 mmol/L (3.6-5.0) 05/14/21 05:46 Chloride 103.0 mmol/L (98-107) 05/14/21 05:46 Carbon Dioxide 23 mmol/L (22-30) 05/14/21 05:46 Anion Gap 16 mmol/L 05/14/21 05:46 BUN 9 mg/dL (7-17) 05/14/21 05:46 Creatinine 0.6 mg/dL (0.6-1.2) 05/14/21 05:46 Estimated GFR > 60 ml/min 05/14/21 05:46 BUN/Creatinine Ratio 15 % 05/14/21 05:46 Glucose 85 mg/dL (65-100) 05/14/21 05:46 POC Glucose 111 mg/dL (70-105) H 05/14/21 21:53 Calcium 9.0 mg/dL (8.4-10.2) 05/14/21 05:46 Total Bilirubin 0.40 mg/dL (0.1-1.2) 05/14/21 05:46 AST 16 units/L (5-40) 05/14/21 05:46 ALT 10 units/L (7-56) 05/14/21 05:46 Alkaline Phosphatase 99 units/L (35-129) 05/14/21 05:46 Total Protein 7.7 g/dL (6.3-8.2) 05/14/21 05:46 Albumin 3.8 g/dL (3.9-5) L 05/14/21 05:46 Albumin/Globulin Ratio 1.0 % 05/14/21 05:46 Acevedo/IV: Voiding Method External Female Catheter Active Medications - Current Medications Current Medications: Generic Name Dose Route Start Last Admin Trade Name Freq PRN Reason Stop Dose Admin Acetaminophen 650 mg 05/13/21 17:26 Acetaminophen 650 Mg Rect Supp [place] Q4H PRN Pain MILD(1-3)/Fever >100.5/PUCKETT Amlodipine Besylate 2.5 mg 05/14/21 11:00 05/14/21 11:30 Amlodipine 5 Mg Tab PO Not Given QDAY CAMRON Famotidine 20 mg 05/13/21 22:00 05/14/21 21:05 Famotidine 20 Mg/2 Ml Inj IV 20 mg BID CAMRON Administration Dextrose/Sodium Chloride 1,000 mls @ 75 mls/hr 05/14/21 13:00 05/15/21 02:35 D5/0.45ns IV 75 mls/hr DIRECT CAMRON Administration Metoclopramide HCl 10 mg 05/13/21 17:26 Metoclopramide 10 Mg/2 Ml Inj IV Q6H PRN Nausea And Vomiting Morphine Sulfate 2 mg 05/13/21 17:26 Morphine 2 Mg/1 Ml Inj IV Q4H PRN Pain, Moderate (4-6) Ondansetron HCl 4 mg 05/13/21 17:26 Ondansetron 4 Mg/2 Ml Inj IV Q8H PRN Nausea And Vomiting Pravastatin Sodium 40 mg 05/14/21 22:00 05/14/21 21:05 Pravastatin 40 Mg Tab PO Not Given QHS CAMRON Quetiapine Fumarate 100 mg 05/14/21 22:00 05/14/21 21:05 Quetiapine 100 Mg Tab PO Not Given QHS CAMRON Sodium Chloride 10 ml 05/13/21 22:00 05/14/21 21:05 Sodium Chloride 0.9% 10 Ml Flush Syringe IV 10 ml BID CAMRON Administration Sodium Chloride 10 ml 05/13/21 17:26 Sodium Chloride 0.9% 10 Ml Flush Syringe IV PRN PRN LINE FLUSH Nutrition/Malnutrition Assess - Dietary Evaluation Nutrition/Malnutrition Findings: Nutrition Notes Start: 05/14/21 15:56 Freq: Status: Active Protocol: Document 05/14/21 15:56 JER (Rec: 05/14/21 16:20 JER [id number]) Nutrition Notes Need for Assessment generated from: director of operations support Initial or Follow up Assessment Current Diagnosis Hypertension,Malnutrition, Stroke,Hyperlipidemia Other Pertinent Diagnosis Anabela's Disease, Oropharingeal Dysphagia, Anemia, GERD. Current Diet NPO (since 05/14 00:01). Labs/Tests 05/14: WNL. Pertinent Medications 05/14: D5/0.45ns 1000 ml @ 75 ml/hr, others nutritionally unremarkable. Height 5 ft 6 in Weight 54.88 kg [place] Body Weight (kg) 59.09 BMI 19.5 Intake Prior to Admission Good Weight change and time frame Pt states not having loss body weight [employer]. Weight Status Appropriate Subjective/Other Information RD consult for difficulty chewing assessment. Pt currently on NPO. Plans tfor PEG tube placement on 05/14, according to Progress notes. Pt has oropharyngeal Disphagia , no mention of cifficulty chewing, but regardless, Pt will be fed by TF. Pt lives on SNF. Percent of energy/protein needs met: Pt currently on NPO. Burn Absent Trauma Absent GI Symptoms Other Difficulty In Swallowing Food Allergy No Skin Integrity/Comment Assessment WNL. Current % PO Other #1 Nutrition Diagnosis Swallowing difficulty Etiology CVA, [place]'s Disease. As Evidenced by Signs and Symptoms Oropharyngeal Dysphagia. Is patient on ventilator? No Is Patient Ambulatory and/or Out of Bed No REE-([facility]-confined to bed) 1355.952 Kcal/Kg value to use for calculation 30 Approximate Energy Requirements Using 1646 kcal/Kg Calculation Used for Recommendations Kcal/kg Additional Notes Protein: 0.8-1 g/Kg IBW; 47-59 g/day. Fluids: 1 ml/Kcal, or as per MD. Nutrition Intervention Follow-Up By: 05/15/21 Additional Comments When pertinent, start monitoring TF tolerance and BM .
[2021-05-15 07:43] LABS: Hematocrit 33.8 % (30.3-42.9); Hemoglobin 11.1 gm/dl (10.1-14.3); Mean Corpuscular HGB Conc 33 % (30-34); Mean Corpuscular Volume 91 fl (79-97); Platelet Count 215 K/mm3 (140-440); Red Blood Count 3.71 M/mm3 (3.65-5.03)
[2021-05-15 08:05] LABS: Blood Urea Nitrogen 5 mg/dL (7-17); Hemolysis Index 4
[2021-05-15 08:07] LABS: BUN/Creatinine Ratio 10
[2021-05-15] MEDS: amLODIPine 5 MG TAB PO SCH (09:14)
[2021-05-15] MEDS: FAMOTIDINE 20 MG/2 ML INJ IV SCH ×2 (09:16→21:19)
[2021-05-15] MEDS ORDERED: ASPIRIN 81 MG TAB CHEW PO SCH (10:00)
[2021-05-15] MEDS ORDERED: ASPIRIN EC 81 MG TAB PO SCH (10:00)
[2021-05-15] MEDS ORDERED: SODIUM CHLORIDE 0.9% 1000 ML 1,000 ML ONE (10:54)
[2021-05-15] MEDS ORDERED: ceFAZolin/Water 2 GM/20 ML 2 GM/20 ML SYRINGE IV ONE (12:05)
[2021-05-15] MEDS ORDERED: ceFAZolin/STERILE WATER 2 GM/20 ML SYRINGE IV ONE (12:23)
[2021-05-15] MEDS ORDERED: LIDOCAINE MPF (2%) 20 MG/1 ML VIAL 5 ML ONE (12:33)
[2021-05-15] MEDS ORDERED: propofoL 200 MG/20 ML VIAL IV ONE (12:33)
--- NOTE | 2021-05-15 13:32 | Anesthesia Consultation ---
Anesthesia Consult and Med Hx Date of service: 05/15/21 - Airway Anesthetic Teeth Evaluation: Poor ROM Head & Neck: Adequate Mental/Hyoid Distance: Adequate Intubation Access Assessment: Possibly Difficult (not fully cooperative with airway exam) - Pre-Operative Health Status ASA Pre-Surgery Classification: ASA3 Proposed Anesthetic Plan: MAC - Pulmonary Hx Respiratory Symptoms: No - Cardiovascular System Hx Hypertension: Yes - Central Nervous System CVA: Yes Hx Psychiatric Problems: Yes ([place]'s disease) - Endocrine Hx Renal Disease: No Hx Liver Disease: No Hx Insulin Dependent Diabetes: No Hx Non-Insulin Dependent Diabetes: No Hx Thyroid Disease: No
--- NOTE | 2021-05-15 13:33 | Post Anesthesia Evaluation ---
- Post Anesthesia Evaluation Patient Participated: No Airway Patent: Yes Stable Respiratory Function: Yes Nausea/Vomiting: No Temp > 96.8F: Yes Pain Manageable: Yes Adequeate Hydration: Yes Anesthesia Complications: No
--- NOTE | 2021-05-15 13:33 | Anesthesia Day of Surgery ---
Anesthesia Day of Surgery - Day of Surgery Patient Examined: Yes Patient H&P Reviewed: Yes Patient is NPO: Yes
--- NOTE | 2021-05-15 14:00 | Post Operative Note ---
Pre-op diagnosis: dysphagia Post-op diagnosis: same Findings: EGD: hiatal hernia - mild gastritis - negative other - 20 F pull peg, bumper at 3 cm Procedure: egd/peg Anesthesia: MAC Surgeon: FRANTZ CAPPS Estimated blood loss: none Pathology: list Specimen disposition: to lab Condition: stable Disposition: floor
--- NOTE | 2021-05-15 15:26 | Operative Report ---
DATE OF SURGERY: 05/15/2021 PROCEDURE: EGD with PEG placement. INDICATIONS: 1. Dysphagia. 2. Weight loss. 3. Aspiration via esophagus. MEDICATIONS: Propofol per MUNICIPAL ENGINEER. COMPLICATIONS: None. DESCRIPTION OF PROCEDURE: The patient was brought to procedure suite. The patient had the procedure discussed with family at length. All risks, complications and benefits discussed, after which consent was gotten for the procedure to be performed. The patient was placed in supine position. Mouth block placed in the patient's oral cavity. After adequate sedation with medication as above, endoscope placed in the mouth and brought to level of second portion of duodenum. Retroflexion view performed. The patient's vital signs remained stable throughout the procedure. FINDINGS: There was a small hiatal hernia at GE junction, 38 cm from the gums. The esophagus otherwise appeared to be normal. There was mild gastritis noted in stomach. The stomach otherwise appeared to be normal. The duodenum appeared to be normal. Retroflexion view performed in the stomach showed no other pathology other than noted above. After this inspection using adequate technique and transillumination, area for adequate placement was found in the gastric body. Using standard technique, a 20-Armenian pull PEG was then placed. Bump was noted to be at 3 cm. Postprocedure appearance was satisfactory. The patient tolerated the procedure well. No complications noted during procedure. IMPRESSION: 1. Hiatal hernia. 2. Mild gastritis. 3. Otherwise, normal EGD. 4. PEG tube placed without obvious complications. RECOMMENDATIONS: 1. Standard PEG tube orders, see chart. 2. Watch for signs of bleeding or infection. 3. Okay to use PEG tube in 6 hours. 4. We will follow up in a.m. TID: [id number] RECEIPT: [id number] [facility]/JESENIA
[2021-05-15] MEDS ORDERED: LIPASE 10,500/PROTEASE 25,000/AMYLASE 43,750 (UNITS) DR CAP FEEDTUBE PRN (15:38)
[2021-05-15] MEDS ORDERED: SIMPLE SYRUP 15 ML FEEDTUBE PRN ×2 (15:38)
[2021-05-15] MEDS ORDERED: SODIUM BICARBONATE 325 MG TAB FEEDTUBE PRN (15:38)
[2021-05-15] MEDS: QUEtiapine 100 MG TAB PO SCH (21:19)
[2021-05-15] MEDS: PRAVASTATIN 40 MG TAB PO SCH (21:19)
[2021-05-16] MEDS: D5W/0.45% NACL 1,000 ML IV SCH ×2 (04:56→18:21)
[2021-05-16] MEDS: amLODIPine 5 MG TAB PO SCH (09:56)
[2021-05-16] MEDS: FAMOTIDINE 20 MG/2 ML INJ IV SCH ×2 (09:56→22:13)
--- NOTE | 2021-05-16 10:50 | Progress Note ---
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 intake -Nutrition following for tube feeding #Hypertension -Continue antihypertensives and adjust medications as necessary #history of CVA -BP control, continue statin -will restart ASA #Unspecified mood disorder -continue seroquel History Interval history: No acute events overnight per nursing. Patient stable. Tube feeds running at 47cc/hr. Unable to respond appropriately to conversation. Hospitalist Physical - Physical exam Narrative exam: GENERAL: Thin, cachectic. In no acute distress. CHEST/LUNGS: CTAB on room air HEART/CARDIOVASCULAR: RRR. No murmur, rubs or gallops appreciated. ABDOMEN: PEG tube in place and bandaged. +BS. NT/ND. SKIN: No rashes noted. NEURO: No focal motor deficit appreciated MUSCULOSKELETAL: No joint effusion EXTREMITIES: No cyanosis, clubbing or edema. PSYCH: Confused. - Constitutional Vitals: Temp Pulse Resp BP Pulse Ox 98.7 F 77 16 116/77 96 05/16/21 04:34 05/16/21 04:34 05/16/21 04:34 05/16/21 04:34 05/16/21 07:21 General appearance: Present: no acute distress, cachectic Results - Labs CBC & Chem 7: 05/15/21 06:47 05/15/21 06:47 Labs: Laboratory Last Values WBC 4.6 K/mm3 (4.5-11.0) 05/15/21 06:47 RBC 3.71 M/mm3 (3.65-5.03) 05/15/21 06:47 Hgb 11.1 gm/dl (10.1-14.3) 05/15/21 06:47 Hct 33.8 % (30.3-42.9) 05/15/21 06:47 MCV 91 fl (79-97) 05/15/21 06:47 MCH 30 pg (28-32) 05/15/21 06:47 MCHC 33 % (30-34) 05/15/21 06:47 RDW 13.0 % (13.2-15.2) L 05/15/21 06:47 Plt Count 215 K/mm3 (140-440) 05/15/21 06:47 Lymph % (Auto) 30.9 % (13.4-35.0) 05/14/21 05:46 [place] % (Auto) 7.9 % (0.0-7.3) H 05/14/21 05:46 Eos % (Auto) 2.1 % (0.0-4.3) 05/14/21 05:46 Baso % (Auto) 0.6 % (0.0-1.8) 05/14/21 05:46 Lymph # (Auto) 1.6 K/mm3 (1.2-5.4) 05/14/21 05:46 [place] # (Auto) 0.4 K/mm3 (0.0-0.8) 05/14/21 05:46 Eos # (Auto) 0.1 K/mm3 (0.0-0.4) 05/14/21 05:46 Baso # (Auto) 0.0 K/mm3 (0.0-0.1) 05/14/21 05:46 Seg Neutrophils % 58.5 % (40.0-70.0) 05/14/21 05:46 Seg Neutrophils # 3.1 K/mm3 (1.8-7.7) 05/14/21 05:46 Sodium 139 mmol/L (137-145) 05/15/21 06:47 Potassium 3.7 mmol/L (3.6-5.0) 05/15/21 06:47 Chloride 104.8 mmol/L (98-107) 05/15/21 06:47 Carbon Dioxide 22 mmol/L (22-30) 05/15/21 06:47 Anion Gap 16 mmol/L 05/15/21 06:47 BUN 5 mg/dL (7-17) L 05/15/21 06:47 Creatinine 0.5 mg/dL (0.6-1.2) L 05/15/21 06:47 Estimated GFR > 60 ml/min 05/15/21 06:47 BUN/Creatinine Ratio 10 % 05/15/21 06:47 Glucose 105 mg/dL (65-100) H 05/15/21 06:47 POC Glucose 112 mg/dL (70-105) H 05/16/21 05:36 Calcium 9.0 mg/dL (8.4-10.2) 05/15/21 06:47 Total Bilirubin 0.40 mg/dL (0.1-1.2) 05/14/21 05:46 AST 16 units/L (5-40) 05/14/21 05:46 ALT 10 units/L (7-56) 05/14/21 05:46 Alkaline Phosphatase 99 units/L (35-129) 05/14/21 05:46 Total Protein 7.7 g/dL (6.3-8.2) 05/14/21 05:46 Albumin 3.8 g/dL (3.9-5) L 05/14/21 05:46 Albumin/Globulin Ratio 1.0 % 05/14/21 05:46 Acevedo/IV: Voiding Method External Female Catheter Active Medications - Current Medications Current Medications: Generic Name Dose Route Start Last Admin Trade Name Freq PRN Reason Stop Dose Admin Acetaminophen 650 mg 05/13/21 17:26 Acetaminophen 650 Mg Rect Supp [place] Q4H PRN Pain MILD(1-3)/Fever >100.5/PUCKETT Amlodipine Besylate 2.5 mg 05/14/21 11:00 05/16/21 09:56 Amlodipine 5 Mg Tab PO 2.5 mg QDAY CAMRON Administration Lipase/Protease/Amylase 1 each 05/15/21 15:38 Lipase 10,500/Protease 25,000/Amylase 43,750 (Units) Dr Higuera FEEDTUBE PRN PRN For Clogged Feeding Tube Famotidine 20 mg 05/13/21 22:00 05/16/21 09:56 Famotidine 20 Mg/2 Ml Inj IV 20 mg BID CAMRON Administration Dextrose/Sodium Chloride 1,000 mls @ 75 mls/hr 05/14/21 13:00 05/16/21 04:56 D5/0.45ns IV 75 mls/hr DIRECT CAMRON Administration Metoclopramide HCl 10 mg 05/13/21 17:26 Metoclopramide 10 Mg/2 Ml Inj IV Q6H PRN Nausea And Vomiting Morphine Sulfate 2 mg 05/13/21 17:26 Morphine 2 Mg/1 Ml Inj IV Q4H PRN Pain, Moderate (4-6) Ondansetron HCl 4 mg 05/13/21 17:26 Ondansetron 4 Mg/2 Ml Inj IV Q8H PRN Nausea And Vomiting Pravastatin Sodium 40 mg 05/14/21 22:00 05/15/21 21:19 Pravastatin 40 Mg Tab PO 40 mg QHS CAMRON Administration Quetiapine Fumarate 100 mg 05/14/21 22:00 05/15/21 21:19 Quetiapine 100 Mg Tab PO 100 mg QHS CAMRON Administration Simple Syrup 15 ml 05/15/21 15:38 Simple Syrup 15 Ml FEEDTUBE PRN PRN Hypoglycemia Simple Syrup 30 ml 05/15/21 15:38 Simple Syrup 15 Ml FEEDTUBE PRN PRN Hypoglycemia Sodium Bicarbonate 325 mg 05/15/21 15:38 Sodium Bicarbonate 325 Mg Tab FEEDTUBE PRN PRN For Clogged Feeding Tube Sodium Chloride 10 ml 05/13/21 22:00 05/16/21 09:56 Sodium Chloride 0.9% 10 Ml Flush Syringe IV 10 ml BID CAMRON Administration Sodium Chloride 10 ml 05/13/21 17:26 Sodium Chloride 0.9% 10 Ml Flush Syringe IV PRN PRN LINE FLUSH Nutrition/Malnutrition Assess - Dietary Evaluation Nutrition/Malnutrition Findings: Nutrition Notes Start: 05/14/21 15:56 Freq: Status: Active Protocol: Document 05/15/21 15:06 JER (Rec: 05/15/21 15:18 JER [email or web address]) Nutrition Notes Initial or Follow up Reassessment Current Diagnosis Hypertension,Malnutrition, Stroke,Hyperlipidemia Other Pertinent Diagnosis [place]'s Disease, Oropharingeal Dysphagia, Anemia, GERD. Current Diet TF-Jevity 1.2 [place] @ 57 ml/hr ( since D 05/15). Labs/Tests 05/15: BUN 5, Crea 0.5, Glu 105. Pertinent Medications 05/15: Nutritionally unremarkable. Height 5 ft 6 in Weight 58.5 kg [place] Body Weight (kg) 59.09 BMI 20.8 Weight change and time frame 3.62 Kg body weigh gain reported in 1 day. Weight Status Appropriate Subjective/Other Information RD consult for write/manage TF . EGD/PEG tube placed on 05/14. well tolerated, according to Operative Report notes. Percent of energy/protein needs met: Prescribed TF-Jevity 1.2 [place] @ 57 ml/hr provides for energy/ protein needs (1,638 Kcal/76 g ) during LOS, 100% Kcal; 100% AA. Burn Absent Trauma Absent GI Symptoms Other Difficulty In Swallowing Food Allergy No Skin Integrity/Comment Surgical wound. Current % PO Other #1 Nutrition Diagnosis Swallowing difficulty Comments: EGD/PEG tube placed on 05/14. well tolerated, according to Operative Report notes. Diagnosis Progress(for reassessment Improved documentation) Is patient on ventilator? No Is Patient Ambulatory and/or Out of Bed No REE-([facility]-confined to bed) 1399.356 Kcal/Kg value to use for calculation 28 Approximate Energy Requirements Using 1638 kcal/Kg Calculation Used for Recommendations Kcal/kg Additional Notes Protein: 0.8-1 g/Kg IBW; 47-59 g/day. Fluids: 1 ml/Kcal, or as per MD. Nutrition Intervention Nutrition Support: Start Jevity 1.2 [place] @ 57 ml/ hr. Flush: 90 ml water Q 4 hr, or as per MD. Kcal 1,638 Protein (gm) 76 Carbohydrates (gm) 231 Fat (gm) 54 Fluid (mL) 1,102 Fiber (gm) 25 % RDI: 100% Kcal; 100% AA. Goal #1 Provide at least 75% of energy /protein needs through Enteral Feeding during LOS. Goal #2 Maintain body weight within +/ -3% of admission body weight during LOS. Follow-Up By: 05/19/21 Additional Comments Start monitoring TF tolerance and BM.
[2021-05-16] MEDS: ASPIRIN 81 MG TAB CHEW PO SCH (11:34)
[2021-05-16] MEDS: QUEtiapine 100 MG TAB PO SCH (22:13)
[2021-05-16] MEDS: PRAVASTATIN 40 MG TAB PO SCH (22:14)
--- NOTE | 2021-05-16 23:22 | Gastroenterology Progress Note ---
Subjective Date of service: 05/16/21 Interval history: - no complaints overnight per staff after peg Objective - Constitutional Vitals: Temp Pulse Resp BP Pulse Ox 98.5 F 82 18 133/89 97 05/16/21 16:53 05/16/21 16:53 05/16/21 16:53 05/16/21 16:53 05/16/21 16:53 General appearance: no acute distress - EENT Eyes: PERRL - Respiratory Respiratory: bilateral: CTA - Cardiovascular Rhythm: regular Heart Sounds: Present: S1 & S2 - Gastrointestinal General gastrointestinal: Present: soft, non-tender, non-distended (peg site intact) - Labs CBC & Chem 7: 05/15/21 06:47 05/15/21 06:47 Labs: Laboratory Results - last 24 hr 05/15/21 05/16/21 05/16/21 23:52 05:36 11:47 POC Glucose 154 H 112 H 115 H SARS-CoV-2 (PCR) 05/16/21 05/16/21 13:27 16:49 POC Glucose 106 H SARS-CoV-2 (PCR) Negative
[2021-05-17] MEDS: D5W/0.45% NACL 1,000 ML IV SCH (06:07)
[2021-05-17 07:03] LABS: Blood Urea Nitrogen 6 mg/dL (7-17); Calcium 8.6 mg/dL (8.4-10.2); Hemolysis Index 2
[2021-05-17 07:05] LABS: BUN/Creatinine Ratio 12
[2021-05-17] MEDS: amLODIPine 5 MG TAB PO SCH (09:48)
[2021-05-17] MEDS: FAMOTIDINE 20 MG/2 ML INJ IV SCH (09:49)
[2021-05-17] MEDS: ASPIRIN 81 MG TAB CHEW PO SCH (09:49)
--- NOTE | 2021-05-17 09:51 | Discharge Summary ---
Providers - Providers Date of Admission: 05/13/21 17:26 Date of discharge: 05/17/21 Attending physician: KELVIN POP 05/13/21 15:16 Consult to Physician [CONS] Urgent Comment: Consulting Provider: FRANTZ CAPPS Physician Instructions: Reason For Exam: G tube placement 05/15/21 13:59 Consult to Dietitian/Nutrition [CONS] Routine Physician Instructions: Reason For Exam: Reason for Consult: Write/Manage Tube Feeding 05/15/21 14:00 Consult to Dietitian/Nutrition [CONS] Routine Physician Instructions: Reason For Exam: Reason for Consult: post-peg Primary care physician: YARED SHEPPARD Hospitalization Condition: Stable Procedures: PEG tube placement Hospital course: 60-year-old female with history of Anabela's disease, CVA originally presented with malnutrition failure to thrive high risk of aspiration. Patient was not eating or drinking enough to sustain life. Family opted for alternative means of feeding. Patient admitted for PEG tube placement. Patient underwent successful PEG tube placement. Nutrition was optimized at 57 cc an hour. Patient was stable to transfer back to nursing facility. Patient well-known to myself. Disposition: 03 SNF FACILITY Final Discharge Diagnosis (Prints w/discharge instructions): Severe protein deficiency malnutrition Time spent for discharge: 28 Core Measure Documentation - Palliative Care Palliative Care/ Comfort Measures: Not Applicable - Core Measures Any of the following diagnoses?: none Exam - Constitutional Vitals: Temp Pulse Resp BP Pulse Ox 97.7 F 94 H 18 103/73 98 05/17/21 04:19 05/17/21 04:19 05/17/21 04:19 05/17/21 04:19 05/17/21 04:19 General appearance: Present: cachectic, other (Atrophy deconditioning. Temporal wasting.) - EENT ENT: poor dentition - Neck Neck: Present: supple, normal ROM - Respiratory Respiratory effort: normal Respiratory: bilateral: CTA (Poor inspiratory effort) - Cardiovascular Rhythm: regular - Extremities Extremity abnormal: other (Atrophy, deconditioning, contractures.) - Abdominal General gastrointestinal: Present: other (PEG tube site looks clean no exudate. No bleeding) - Musculoskeletal Musculoskeletal: generalized weakness - Psychiatric Psychiatric: other (Cognitive deficits.) Plan Activity: other (Patient bedbound) Diet: other (PEG tube feedings Glucerna 57 cc/h.) Special Instructions: other (Free water 200 cc every 6 hours.) Follow up with: YARED SHEPPARD MD [Primary Care Provider] - 7 Days
[2021-05-17 18:33] VITALS: BP 137/90
== END 2021-05-17 22:20 | DRG 391 ==
LOC: ED 11:51 → 3A 17:26
PROVIDERS: ADMIT Internal Medicine; ATTEND Internal Medicine
PROC: 0DH63UZ Insertion of Feeding Device into Stomach, Percutaneous Approach (ICD-10-PCS; principal; 2021-05-15)
DX: R13.12 Dysphagia, oropharyngeal phase (principal); E43 Unspecified severe protein-calorie malnutrition; G10 Huntington's disease; I10 Essential (primary) hypertension; R62.7 Adult failure to thrive; Z68.20 Body mass index [BMI] 20.0-20.9, adult; K21.9 Gastro-esophageal reflux disease without esophagitis; E78.5 Hyperlipidemia, unspecified; F39 Unspecified mood [affective] disorder; K29.70 Gastritis, unspecified, without bleeding; K44.9 Diaphragmatic hernia without obstruction or gangrene; Z86.73 Personal history of transient ischemic attack (TIA), and cerebral infarction without residual deficits
CPT/HCPCS: 36415; 80048; 80053; 82962; 83735; 84100; 85025; 85027; G0378; J3490; J7070; J7120; Q0162; J0690; J1644; J2704; J7030; U0003